=== PATIENT | male | born 1950 | race Caucasian/White ===

== ENCOUNTER 2016-11-20 07:17 | Day surgery (SDC) | payer MEDICARE, OTHER ==
[~2016-11-20] VITALS: Ht 193 cm; Wt 106.3 kg
--- OUTSIDE RECORDS SUMMARY | 2016-11-20 07:20 | XMS REPORT | Clinical Summary ---
Author Author Admin, E Organization [facility] Address Unknown Phone Unavailable Allergies, Adverse Reactions, Alerts Allergy Name Reaction Description Start Date Severity Status Provider No Known Allergies Magui Elder Conditions or Problems Problem Name Problem Code Onset Date Status Entry Date Provider Comment Standard Description Annotate B P H Active Kaycee Elmore MD Hypertrophy ( benign) of prostate without urinary obstruction and other lower urinary tract ( LUTS) Incomplete Bladder Emptying Active Kaycee Elmore MD Retention of urine, unspecified Medication List Medication Instructions Start Date Stop Date Generic Name NDC Status Provider Patient Instruction MULTIVITAMINS CAPS 1 cap by mouth daily MULTIPLE VITAMIN 89692721120 Active Kaycee Elmore MD Active ASPIRIN 81 MG ORAL TBEC 1 po qd ASPIRIN 99392447773 Active Kaycee Elmore MD Active METFORMIN HCL 1000 MG TABS 1 tablet by mouth twice daily METFORMIN HCL 69806000259 Active Kaycee Elmore MD Active ATORVASTATIN CALCIUM 10 MG TABS 1 pill by mouth nightly, for cholesterol 2016 ATORVASTATIN CALCIUM 48134131962 Active Kaycee Elmoer MD Active FLOMAX 0.4 MG CAPS 1 Daily TAMSULOSIN HCL 61763471314 Active Kaycee Elmore MD Active JARDIANCE 10 MG ORAL TABS 1 tablet daily for diabetes EMPAGLIFLOZIN 89281522465 Active Kaycee Elmore MD Active GLIMEPIRIDE 4 MG ORAL TABS 1 po BID GLIMEPIRIDE 92641557191 Active Kaycee Elmore MD Active Advance Directives Directive Description Start Date PERMISSION TO SHARE Vital Signs Date Name Value Unit Range Description blood pressure, diastolic 70 mm[Hg] BP sandoval blood pressure, systolic 125 mm[Hg] BP sys height E&M 74 [in_us] Bdy height pulse rate E&M 75 /min Heart rate temperature E&M 98.3 [degF] Body temperature weight E&M 244 [lb_av] Weight Measured Encounters Code Encounter Date Provider Facility CPT-00268 Level 4 New Patient 01:01:31 CDT Kaycee Elmore MD [facility] Procedures Code Procedure Name Date Entry Date Standard Description CPT-67281 Bladder Scan 01:01:32 CDT
--- OUTSIDE RECORDS SUMMARY | 2016-11-20 07:20 | XMS REPORT | Clinical Summary ---
Author Author Admin, E Organization [facility] Address Unknown Phone Unavailable Allergies, Adverse Reactions, [...] 1 cap by mouth daily MULTIPLE VITAMIN 95025545107 Active Kaycee Elmore MD Active ASPIRIN 81 MG ORAL TBEC 1 po qd ASPIRIN 61050007682 Active Kaycee Elmore MD Active METFORMIN HCL 1000 MG TABS 1 tablet by mouth twice daily METFORMIN HCL 23917750027 Active Kaycee Elmore MD Active ATORVASTATIN CALCIUM 10 MG TABS 1 pill by mouth nightly, for cholesterol 2016 ATORVASTATIN CALCIUM 71228209429 Active Kaycee Elmore MD Active FLOMAX 0.4 MG CAPS 1 Daily TAMSULOSIN HCL 56405926890 Active Kaycee Elmore MD Active JARDIANCE 10 MG ORAL TABS 1 tablet daily for diabetes EMPAGLIFLOZIN 16435752297 Active Kaycee Elmore MD Active GLIMEPIRIDE 4 MG ORAL TABS 1 po BID GLIMEPIRIDE 67290761281 Active Kaycee Elmore MD Active Vital Signs Date Name Value Unit Range Description blood pressure, diastolic 70 mm[Hg] BP sandoval blood pressure, systolic 125 mm[Hg] BP sys height E&M 74 [in_us] Bdy height pulse rate E&M 75 /min Heart rate temperature E&M 98.3 [degF] Body temperature weight E&M 244 [lb_av] Weight Measured Encounters Code Encounter Date Provider Facility CPT-99225 Level 4 New Patient 01:01:31 CDT Kaycee Elmore MD [facility] Procedures Code Procedure Name Date Entry Date Standard Description CPT-75128 Bladder Scan 01:01:32 CDT
--- OUTSIDE RECORDS SUMMARY | 2016-11-20 07:20 | XMS REPORT | Clinical Summary ---
Author Author Admin, E Organization [facility] Address Unknown Phone Unavailable Allergies, Adverse Reactions, [...] 1 cap by mouth daily MULTIPLE VITAMIN 27799362003 Active Kaycee Elmore MD Active ASPIRIN 81 MG ORAL TBEC 1 po qd ASPIRIN 19229974592 Active Kaycee Elmore MD Active METFORMIN HCL 1000 MG TABS 1 tablet by mouth twice daily METFORMIN HCL 45181357148 Active Kaycee Elmore MD Active ATORVASTATIN CALCIUM 10 MG TABS 1 pill by mouth nightly, for cholesterol 2016 ATORVASTATIN CALCIUM 09462549860 Active Kaycee Elmore MD Active FLOMAX 0.4 MG CAPS 1 Daily TAMSULOSIN HCL 79931612104 Active Kaycee Elmore MD Active JARDIANCE 10 MG ORAL TABS 1 tablet daily for diabetes EMPAGLIFLOZIN 38537123245 Active Kaycee Elmore MD Active GLIMEPIRIDE 4 MG ORAL TABS 1 po BID GLIMEPIRIDE 16509416232 Active Kaycee Elmore MD Active Advance Directives [...] Measured Encounters Code Encounter Date Provider Facility CPT-64222 Level 4 New Patient 01:01:31 CDT J Burton Elmore MD [facility] Procedures Code Procedure Name Date Entry Date Standard Description CPT-02620 Bladder Scan 01:01:32 CDT
--- OUTSIDE RECORDS SUMMARY | 2016-11-20 07:20 | XMS REPORT | Clinical Summary ---
Author Author Admin, E Organization [facility] Address Unknown Phone Unavailable Allergies, Adverse Reactions, [...] 1 cap by mouth daily MULTIPLE VITAMIN 92155757910 Active Kaycee Elmore MD Active ASPIRIN 81 MG ORAL TBEC 1 po qd ASPIRIN 88541054320 Active Kaycee Elmore MD Active METFORMIN HCL 1000 MG TABS 1 tablet by mouth twice daily METFORMIN HCL 13785054443 Active Kaycee Elmore MD Active ATORVASTATIN CALCIUM 10 MG TABS 1 pill by mouth nightly, for cholesterol 2016 ATORVASTATIN CALCIUM 72820522449 Active Kaycee Elmore MD Active FLOMAX 0.4 MG CAPS 1 Daily TAMSULOSIN HCL 68378711478 Active Kaycee Elmore MD Active JARDIANCE 10 MG ORAL TABS 1 tablet daily for diabetes EMPAGLIFLOZIN 02600908560 Active Kaycee Elmore MD Active GLIMEPIRIDE 4 MG ORAL TABS 1 po BID GLIMEPIRIDE 33028275288 Active Kaycee Elmore MD Active Advance Directives [...] Measured Encounters Code Encounter Date Provider Facility CPT-46520 Level 4 New Patient 01:01:31 CDT J Burton Elmore MD [facility] Procedures Code Procedure Name Date Entry Date Standard Description CPT-49653 Bladder Scan 01:01:32 CDT
--- OUTSIDE RECORDS SUMMARY | 2016-11-20 07:20 | XMS REPORT | Clinical Summary ---
Author Author Admin, E Organization [facility] Address Unknown Phone [...] 1 cap by mouth daily MULTIPLE VITAMIN 26291544621 Active Kaycee Elmore MD Active ASPIRIN 81 MG ORAL TBEC 1 po qd ASPIRIN 63482745418 Active Kaycee Elmore MD Active METFORMIN HCL 1000 MG TABS 1 tablet by mouth twice daily METFORMIN HCL 46153929011 Active Kaycee Elmore MD Active ATORVASTATIN CALCIUM 10 MG TABS 1 pill by mouth nightly, for cholesterol 2016 ATORVASTATIN CALCIUM 81264265833 Active Kaycee Elmore MD Active FLOMAX 0.4 MG CAPS 1 Daily TAMSULOSIN HCL 54929200712 Active Kaycee Elmore MD Active JARDIANCE 10 MG ORAL TABS 1 tablet daily for diabetes EMPAGLIFLOZIN 11759343831 Active Kaycee Elmore MD Active GLIMEPIRIDE 4 MG ORAL TABS 1 po BID GLIMEPIRIDE 36333517266 Active Kaycee Elmore MD Active Advance Directives [...] Measured Encounters Code Encounter Date Provider Facility CPT-59592 Level 4 New Patient 01:01:31 CDT J Burton Elmore MD [facility] Procedures Code Procedure Name Date Entry Date Standard Description CPT-07493 Bladder Scan 01:01:32 CDT
--- OUTSIDE RECORDS SUMMARY | 2016-11-20 07:21 | XMS REPORT | Clinical Summary ---
Author Author Admin, E Organization [facility] Address Unknown Phone Unavailable Allergies, Adverse Reactions, [...] 1 cap by mouth daily MULTIPLE VITAMIN 50892294731 Active Kaycee Elmore MD Active ASPIRIN 81 MG ORAL TBEC 1 po qd ASPIRIN 57729998749 Active Kaycee Elmore MD Active METFORMIN HCL 1000 MG TABS 1 tablet by mouth twice daily METFORMIN HCL 19061824554 Active Kaycee Elmore MD Active ATORVASTATIN CALCIUM 10 MG TABS 1 pill by mouth nightly, for cholesterol 2016 ATORVASTATIN CALCIUM 08043843479 Active Kaycee Elmore MD Active FLOMAX 0.4 MG CAPS 1 Daily TAMSULOSIN HCL 70553098411 Active Kaycee Elmore MD Active JARDIANCE 10 MG ORAL TABS 1 tablet daily for diabetes EMPAGLIFLOZIN 36159239804 Active Kaycee Elmore MD Active GLIMEPIRIDE 4 MG ORAL TABS 1 po BID GLIMEPIRIDE 35133854665 Active Kaycee Elmore MD Active Advance Directives [...] Measured Encounters Code Encounter Date Provider Facility CPT-93816 Level 4 New Patient 01:01:31 CDT J Burton Elmore MD [facility] Procedures Code Procedure Name Date Entry Date Standard Description CPT-66993 Bladder Scan 01:01:32 CDT
[2016-11-20] MEDS ORDERED: CATHETER FLUSH 10 ML SYR IV PRN (08:00)
[2016-11-20] MEDS ORDERED: IOHEXOL 300 MG/ML 50 ML (OMNIPAQUE 300) VIAL IV ONE (08:00)
[2016-11-20 08:18] VITALS: BP 132/60
[2016-11-20 08:49] LABS: MEAN PLATELET VOLUME 9.9 FL (7.4-10.4); RED BLOOD COUNT 5.18 10^6/uL (4.35-5.85); RED CELL DISTRIBUTION WIDTH 15.4 % (10.0-14.5); WHITE BLOOD COUNT 8.4 10^3/uL (4.3-11.0)
--- NOTE | 2016-11-20 09:54 | Pre-Procedure Progress Note ---
Pre-Procedure Progress Note H&P Reviewed The H&P was reviewed, patient examined and no changes noted. Date H&P Reviewed: Nov 20, 2016 Time H&P Reviewed: 09:00 Pre-Procedure Diagnosis: back pain myelogram pending KYLIE CERDA MD Nov 20, 2016 09:54
--- NOTE | 2016-11-20 09:55 | Discharge Instructions ---
Discharge Instructions Home Medicaitons Changes Hold any current blood thinner home medications for [24 hours]. KYLIE CERDA MD Nov 20, 2016 09:55
[2016-11-20] MEDS ORDERED: ACETAMINOPHEN 500 MG TAB (TYLENOL) PO PRN (10:00)
[2016-11-20] MEDS ORDERED: METF1000 PO (11:09)
[2016-11-20] MEDS ORDERED: MULT-35 PO (11:09)
[2016-11-20] MEDS ORDERED: ATOR40TA70 PO (11:09)
[2016-11-20] MEDS ORDERED: GLIM4TAB PO (11:09)
[2016-11-20] MEDS ORDERED: EMPA25TA PO (11:09)
[2016-11-20] MEDS ORDERED: EXEN2PEN SQ (11:09)
[2016-11-20] MEDS ORDERED: ASPI-983 PO (11:09)
[2016-11-20] MEDS ORDERED: TAMS0.4C2 PO (11:09)
--- NOTE | 2016-11-20 11:11 | Diagnostic Imaging Report ---
EXAMINATION: Fluoroscopic guided lumbar puncture with intrathecal contrast injection and myelogram performed. INDICATION: Spinal stenosis. FLUOROSCOPY TIME: 25.6 seconds CONSENT: Informed consent was obtained from the patient. The risks, benefits, potential complications and alternatives were reviewed and all questions answered to the patient's satisfaction. PROCEDURE: After sterile preparation and draping, 1% lidocaine was utilized for local anesthesia. Under fluoroscopic guidance, a 22-gauge spinal needle is advanced into the spinal canal at the level of L3/4. Clear CSF is obtained. Under fluoroscopic visualization, 12 cc of intrathecal Omnipaque-240 is administered into the thecal sac. The patient tolerated the procedure well with no immediate complications. FINDINGS: Myelogram images demonstrate opacification of the thecal sac. Posterior fusion hardware is seen involving L2-S1 levels. IMPRESSION: Successful fluoroscopic guided intrathecal contrast injection with myelogram obtained and a lumbar CT myelogram to follow. Dictated by: Dictated on workstation # [id number]
[2016-11-20 11:43] VITALS: BP 117/68
--- NOTE | 2016-11-20 13:57 | Diagnostic Imaging Report ---
PROCEDURE: CT lumbar spine with contrast. TECHNIQUE: Multiple contiguous axial images were obtained through the lumbar spine after the intrathecal administration of contrast. Sagittal and coronal reformations were then performed. INDICATION: Back pain. FINDINGS: There is good opacification of the thecal sac with contrast. Please note that there is [id number] image noise on this exam due to the patient's large body habitus and artifacts from the metallic hardware which includes posterior fusion rods and transpedicular screws, on the right side involving L3 to S1, and on the left, screws are seen at the L3, L5, and S1 levels. There is also from a lateral approach on the left side a plate and screws along the vertebral bodies at L2/L3, and there is evidence of disc cage placement at L2/3, L3/4, L4/5, and L5/S1 levels. There is a suggestion of osseous bridging at L4/L5 with pseudoarthrosis at other levels. There is left hemilaminectomy performed at the L1/2 and L2/3 levels with suggestion of limited right hemilaminectomy at L4/5. The alignment of the posterior spinal line demonstrates grade 1 retrolisthesis of L4 over L5 and grade 1 anterolisthesis of L5 over S1. There is a presumably pre-existing mild compression fracture of L4 vertebral body and minimal compression fracture of L3 vertebral body which appears to be old. The facet joints at the fusion levels demonstrate osseous bridging, at L2/3 through L5/S1 bilaterally. There is an element of pre-existing congenitally relatively narrow AP dimension of the spinal canal, particularly at L3 and L4 levels. The cauda equina and conus medullaris lined with contrast appear grossly unremarkable. T12/L1: There is a minimal disc bulge with no significant spinal canal or foramina stenosis seen. L1/2: There is a disc bulge and posterior osteophytes associated with gdco-ka-cbgurgkc central canal stenosis reducing the AP dimension of the canal to 8.3 mm with CSF seen around the nerve roots and decompression left laminectomy at this level. No significant lateral recess stenosis is identified. The foramina appear patent. L2/3: There is a diffuse disc bulge and posterior osteophyte seen. There is left hemilaminectomy. There is mild central canal stenosis reducing the AP dimension of the canal to 9 mm. There is bilateral mild lateral recess stenosis. The foramina appear patent. L3/4: There is severe bilateral facet hypertrophy. A limited right hemilaminectomy is suggested. There is moderate spinal canal stenosis with reduced AP dimension of the central canal to 8.4 mm, and posterior osteophyte formation is seen. The lateral recesses demonstrate xoyslaqv-br-mddafl narrowing on the left and vzmg-lk-gdilrnhp narrowing on the right side. There is mild foraminal stenosis on the right and arvcxhat-rd-hhbnwm foraminal stenosis on the left. L4/5: There is no significant disc herniation or spinal canal stenosis. There is prominent hypertrophy of the facet joints. The foramina demonstrate mild stenosis on the left and moderate stenosis on the right. L5/S1: There is posterior osteophyte formation. Partial laminectomy suggested. No central canal or lateral recess stenosis. There is severe facet arthropathy with osseous bridging across the facet joints suggested at this level. The foramina demonstrate wvdrxqhm-au-yvepbd stenosis bilaterally. 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 Multilevel spinal canal and foraminal stenosis seen as described. Dictated by: Dictated on workstation # [id number]
[2016-11-20] MEDS ORDERED: CATHETER FLUSH 10 ML SYR IV SCH (14:00)
== END 2016-11-20 15:01 | disposition home or self-care (01) ==
LOC: RAD 07:17 → 4TH 07:49 → RAD 15:01
DX: M48.06 Spinal stenosis, lumbar region (principal); E78.2 Mixed hyperlipidemia; E11.42 Type 2 diabetes mellitus with diabetic polyneuropathy; N40.1 Benign prostatic hyperplasia with lower urinary tract symptoms; Z79.84 Long term (current) use of oral hypoglycemic drugs; Z79.899 Other long term (current) drug therapy
CPT/HCPCS: 36415; 62284; 72132; 72265; 77002; 85027; 85610; 85730

== ENCOUNTER 2019-10-14 09:02 | Emergency (ER) | payer MEDICARE, OTHER ==
[~2019-10-14] VITALS: Ht 190.5 cm; Wt 105.8 kg
[~2019-10-14 09:02] MED LIST: ASPI-983 PO; ATOR40TA70 PO; EMPA25TA PO; EXEN2PEN SQ; GLIM4TAB5 PO; METF-399 PO; MULT-35 PO; TAMS0.4C2 PO
--- OUTSIDE RECORDS SUMMARY | 2019-10-14 09:08 | XMS REPORT | Clinical Summary ---
Author Author Admin, Marcial Holt Organization [facility] Address Unknown Phone Unavailable Allergies, Adverse Reactions, Alerts Allergy Name Reaction Description Start Date Severity Status Pr ovider No Known Allergies Magui Elder Conditions or Problems Problem Name Problem Code Onset Date Status Entry Date Provider Comment Standard Description Annotate B P H Active Kaycee Elmore MD Hypertrophy (benign) of prostate without urinary obstruction and other lower urinary tract (LUTS) Incomplete Bladder Emptying Active Kaycee Elmore MD Retention of urine, unspecified Medication List Medication Instructions Start Date Stop Date Generic Name NDC Status Provider Patient Instruction MULTIVITAMINS CAPS 1 cap by mouth daily MULTIPL E VITAMIN 76204911560 Active Kaycee lEmore MD Active ASPIRIN 81 MG ORAL TBEC 1 po qd ASPIRIN 64895846533 A ctive Kaycee Elmore MD Active METFORMIN HCL 1000 MG TABS 1 tablet by mouth twice daily METFORMIN HCL 94810242894 Active Kaycee Elmore MD Active ATORVASTATIN CALCIUM 10 MG TABS 1 pill by mouth nightly, for cholesterol ATORVASTATIN CALCIUM 03680880081 Active Kaycee Elmore MD Active FLOMAX 0.4 MG CAPS 1 Daily TAMSULOSIN HCL 22757901952 Active Kaycee Elmore MD Active JARDIANCE 10 MG ORAL TABS 1 tablet daily for diabetes EMPAGLIFLOZIN 66147857430 Active Kaycee Elmore MD Active GLIMEPIRIDE 4 MG ORAL TABS 1 po BID GLIMEPIRIDE 87753 268479 Active Kaycee Elmore MD Active Advance Directives Directive Description Start Date PERMISSION TO SHARE Vital Signs Date Name Value Unit Range Description blood pressure, diastolic 71 mm[Hg] BP sandoval blood pressure, systolic 122 mm[Hg] BP sys pulse rate E&M 74 /min Heart rate temperature E&M 98.1 [degF] Body temp erature weight E&M 244 [lb_av] Weight Measure d blood pressure, diastolic 70 mm[Hg] BP sandoval blood pressure, systolic 125 mm[Hg] BP sys height E&M 74 [in_us] Bdy height pulse rate E&M 75 /min Heart rate temperature E&M 98.3 [degF] Body temp erature weight E&M 244 [lb_av] Weight Measure d Diagnostic Results Date Name Value Unit Range Description Chart Maintenance: Outside labs entered on flowsheet - Chemistry prostate specific antigen 1.4 ng/mL Encounters Code Encounter Date Provider Facility CPT-57647 Level 4 New Patient 01:01:31 CDT Kaycee smith MD [facility] Procedures Code Procedure Name Date Entry Date Standard Desc ription CPT-14828 Postop F/U Visit 13:19:53 CDT CPT-29031 Bladder Scan 01:01:32 CDT
--- OUTSIDE RECORDS SUMMARY | 2019-10-14 09:08 | XMS REPORT | Encounter Summary ---
Author Author [facility] СВЕТЛАНА moreno Organization [facility] Address [address] [place] [address] Phone Unavailable Support Name Relationship Address Phone Dipak SCHNEIDER Next Of Kin [address] [place] [address] Dipak SCHNEIDER [address] [address] Insurance Providers: All historical and current Section Date Range: From patient's date of to the date document was create d. This section includes the names of all active insurance providers for the joy gerardo Insurance Provider Type of Coverage Plan Name Start of Policy Co verage End of Policy Coverage Group Number Member ID Insurance Provider's Telephone N umber Policy Aguilar's Name Patient's Relationship to Policy Aguilar [facility] (WNR) [facility] Sep 13, 1997 WNR [id number] СВЕТЛАНА SCHNEIDER PATIENT Selected Encounter This section includes the information on record at [facility] for the Encounter. Date/Time Encounter Type Encounter Description Reason Provider Source Mar 30, 2019 10:00 AM OFFICE/OUTPATIENT VISIT EST OCCUPATIONAL H [facility] ICD-10-CM Z02.89 Encounter for other administrative examinations with Provider Comments: Administrative Exam NEC MARI GAUTHIER LOCATED WITHIN [facility] [place] [facility] I[facility] Encounter Template Text not used by [facility] Assessments - Encounter Diagnoses This section includes the primary and secondary diag noses documented for the Encounter. Date/Time Primary/Secondary Diagnosis Diagnosis Name Provider Source Mar 31, 2019 04:46 PM PRIMARY Encounter for other admini strative examinations MARI GAUTHIER [facility] [facility] Plan of Treatment: Future Appointments (+ 6 months) and Future Tests (+/- 45 day s) No Data Provided for This Section Surgical Procedures: All associated to the encounter No Data Provided for This Section Lab Results: +/- 30 days of the encounter This section includes the Chemistry and Hematology Lab R esults on record with [facility] for the patient. Radiology Reports and Pathology Report s are provided separately, in subsequent sections. Lab Results This section contains the Chemistry/Hematology Results javad t were resulted 30 days before or 30 days after the date of the Encounter. Date/Time Source Result Type Result - Unit Interpretation Reference Range Comment Mar 30, 2019 10:51 AM LOCATED WITHIN [facility] [place] [facility] HEMOGLOBIN A1C Specimen Type: BLOOD No comment entered. HEMOGLOBIN A1C 8.5 % H 4.0-6.0 Mar 30, 2019 10:51 AM [facility] [place] [facility] URINALYSIS Specimen Type: URINE No comment entered. URINE COLOR Yellow SPECIFIC GRAVITY 1.029 1.005-1.030 UROBILINOGEN Negative mg/dL 0.1-1.0 URINE BILIRUBIN Negative Negative URINE KETONES 5 mg/dl Negative URINE GLUCOSE >=500 mg/dL Negative URINE PROTEIN Negative mg/dl Negative-Tr ankit URINE PH 5.0 5-8 URINE MUCUS Trace /LPF None APPEARANCE,URINE Clear Clear URINE BLOOD Small Negative URINE NITRITE Negative Negative LEUKOCYTE ESTERASE Negative Negative *UR WBC 0-2 WBC/HPF 0-5 *UR RBC 0-2 RBC/HPF 0-2 SQUAMOUS EPITHELIAL Trace /HPF Vital Signs: All taken on the encounter date No Data Provided for This Section Immunizations: All administered on the encounter date No Data Provided for This Section Social History: Smoking Status (Most current) and Tobacco Use (All prior to enco unter date) No Data Provided for This Section Advance Directives: All historical and current No Data Provided for This Section Allergies and Adverse Reactions (ADRs): All historical and current Section Date Range: From patient's date of to the date document was create d. This section includes Allergies and Adverse Reactions (ADR s) on record with [place] for the patient. The data comes from a [facility] treatment facilities. It does not list Allergies/ADRs that were removed or entered in error. Some allergies/ADRs may be reported in t he Immunization section. Allergen Event Date Event Type Reaction(s) Severity Source No Allergy Assessment on File [place] [place] Medications: [facility] dispensed (-15 months) and Non-VA Documented (Obtained Outside V A) No Data Provided for This Section Problems (Conditions): All historical and current No Data Provided for This Section Radiology Reports: +/- 30 days of the encounter No Data Provided for This Section Pathology Reports: +/- 30 days of the encounter No Data Provided for This Section Encounter Notes: All associated encounter notes This section contains the clinical notes associated to the Encounter. Date/Time Encounter Note(s) Provider Source Mar 30, 2019 06:41 AM OCCUPATIONAL MEDICINE NOTE: [facility] TITLE: [employer] STANDARD TITLE: OCCUPATIONAL MEDICINE NOTE DATE OF NOTE: MAR 30, 2019@06:41 ENTRY DATE: MAR 30, 2019@06:41:17 AUTHOR: MARI GAUTHIER EXP COSIGNER: URGENCY: STATUS: COMPLETED You may not VIEW this COMPLETED -[employer]. MARI GAUTHIER [facility] [place] [facility]
--- OUTSIDE RECORDS SUMMARY | 2019-10-14 09:08 | XMS REPORT | Clinical Summary ---
Author Author Admin, Marcial Holt Organization [facility] Address Unknown Phone Unavailable Allergies, Adverse Reactions, [...] cap by mouth daily MULTIPL E VITAMIN 17316713872 Active Kaycee Elmore MD Active ASPIRIN 81 MG ORAL TBEC 1 po qd ASPIRIN 24577468877 A ctive Kaycee Elmore MD Active METFORMIN HCL 1000 MG TABS 1 tablet by mouth twice daily METFORMIN HCL 22657283740 Active Kaycee Elmore MD Active ATORVASTATIN CALCIUM 10 MG TABS 1 pill by mouth nightly, for cholesterol ATORVASTATIN CALCIUM 28847634004 Active Kaycee Elmore MD Active FLOMAX 0.4 MG CAPS 1 Daily TAMSULOSIN HCL 66596439746 Active Kaycee Elmore MD Active JARDIANCE 10 MG ORAL TABS 1 tablet daily for diabetes EMPAGLIFLOZIN 80467278552 Active Kaycee Elmore MD Active GLIMEPIRIDE 4 MG ORAL TABS 1 po BID GLIMEPIRIDE 74151 827945 Active Kaycee Elmore MD Active Advance Directives [...] ng/mL Encounters Code Encounter Date Provider Facility CPT-42397 Level 4 New Patient 01:01:31 CDT Kaycee smith MD [facility] Procedures Code Procedure Name Date Entry Date Standard Desc ription CPT-63367 Postop F/U Visit 13:19:53 CDT CPT-51172 Bladder Scan 01:01:32 CDT
--- OUTSIDE RECORDS SUMMARY | 2019-10-14 09:08 | XMS REPORT | Encounter Summary ---
Author Author Department of [facility] СВЕТЛАНА moreno Organization [facility] Address [address] [place] [phone] Phone Unavailable Support Name Relationship Address Phone Dipak SCHNEIDER Next Of Kin [address] [place] [address] Dipak SCHNEIDER [address] [address] Insurance Providers: All historical and [...] Aguilar's Name Patient's Relationship to Policy Aguilar [facility] (WNR) PRIME [birth year] 1998 WNR [id number] СВЕТЛАНА SCHNEIDER PATIENT Selected Encounter This section includes the information on record at [facility] for the Encounter. Date/Time Encounter Type Encounter Description Reason Provider Source Mar 30, 2019 10:37 AM Outpatient Encounter EKG ICD-1 0-CM Z13.6 Encounter for screening for cardiovascular disorders with Provider Comments: Encounter for Screening for Cardiovascular Disorders ALESSANDRA MARIE [facility] [place] [facility] IHE Encounter Template Text not used by [facility] Assessments - Encounter Diagnoses This section includes the primary and secondary diag noses documented for the Encounter. Date/Time Primary/Secondary Diagnosis Diagnosis Name Provider Source Mar 30, 2019 10:37 AM PRIMARY Encounter for scre ening for cardiovascular disorders TRACEY FAGAN [facility] [place] [facility] Plan of Treatment: Future Appointments (+ 6 months) and Future Tests (+/- 45 day s) No Data Provided for This Section Surgical Procedures: All associated to the encounter No Data Provided for This Section Lab Results: +/- 30 days of the encounter This section includes the Chemistry and Hematology Lab R esults on record with [facility] for the patient. Radiology Reports and Pathology Report s are provided separately, in subsequent sections. Lab Results This section contains the Chemistry/Hematology Results javad t were resulted 30 days before or 30 days after the date of the Encounter. Date/Time Source Result Type Result - Unit Interpretation Reference Range Comment Mar 30, 2019 10:51 AM [facility] [place] [facility] HEMOGLOBIN A1C Specimen Type: BLOOD No comment entered. HEMOGLOBIN A1C 8.5 % H 4.0-6.0 Mar 30, 2019 10:51 AM [facility] [employer] [place] [facility] URINALYSIS Specimen Type: URINE No [...] Adverse Reactions (ADR s) on record with [facility] for the patient. The data comes from a [facility] treatment facilities. It does not list Allergies/ADRs [...] Section Encounter Notes: All associated encounter notes No Data Provided for This Section
--- OUTSIDE RECORDS SUMMARY | 2019-10-14 09:08 | XMS REPORT | Encounter Summary ---
Author Author Department of [facility] СВЕТЛАНА moreno Organization Department of [facility] Address [address] [place] [address] Phone Unavailable Support Name Relationship Address Phone Dipak SCHNEIDER Next Of Kin [address] [place] [address] Dipak SCHNEIDER [address] [address] Insurance Providers: All historical and [...] Aguilar's Name Patient's Relationship to Policy Aguilar [facility] (WNR) PRIME Sep 13, 1997 WNR [id number] СВЕТЛАНА SCHNEIDER PATIENT Selected Encounter This section includes the information on record at [facility] for the Encounter. Date/Time Encounter Type Encounter Description Reason Provider Source Jun 29, 2019 07:48 AM Outpatient Encounter [facility] [place] [facility] Encounter Template Text not used by [facility] Assessments - Encounter Diagnoses No Data Provided for This Section Plan of Treatment: Future Appointments (+ 6 months) and Future Tests (+/- 45 day s) The Plan of Treatment section includes future care activities for the patient fr om all [facility] treatment facilities. This section includes future appointments and fu ture orders which are active, pending or scheduled. Active, Pending, and Scheduled Orders This section includes a listing of several types of activ e, pending, and scheduled orders, including clinic medications orders, diagnosti c test orders, procedure orders and consult orders; where the start date of th e order is 45 days before the date of the Encounter or 45 days after the date o f the Encounter. The data comes from all [facility] treatment facilities. Test Date/Time Test Type Test Details Facility Name Jun 30, 2019 07:00 AM Laboratory - Chemistry Order HEMOGLOBI N A1C LAVENDER TOP BLOOD [facility] [place] [facility] Surgical Procedures: All associated to the encounter No Data Provided for This Section Lab Results: +/- 30 days of the encounter No Data Provided for This Section Vital Signs: All taken on the encounter [...] Adverse Reactions (ADR s) on record with [facility] for the patient. The data comes from a ll [facility] treatment facilities. It does not list Allergies/ADRs that were removed or entered in error. Some allergies/ADRs may be reported in t Immunization section. Allergen Event Date Event Type Reaction(s) Severity Source No Allergy Assessment on File [facility] [place] Medications: [facility] dispensed (-15 months) and Non-VA Documented (Obtained Outside A) No Data Provided for This Section [...] the Encounter. Date/Time Encounter Note(s) Provider Source Jun 29, 2019 07:48 AM ADMINISTRATIVE NOTE: LOCAL TITLE: EK-ADMINISTRATIVE STANDARD TITLE: ADMINISTRATIVE NOTE DATE OF NOTE: JUN 29, 2019@07:48 ENTRY DATE: JUN 29, 2019@07:48:49 AUTHOR: MARI GAUTHIER EXP COSIGNER: URGENCY: STATUS: COMPLETED N: Received fax document of A1c. Down to 7.8 A: Cleared for volunteer driving P: 1. Notify Sandra Moore in [facility] 2. RTC in one year. /sid/ MARI GAUTHIER HOT REPAIRMAN Signed: 06/29/2019 07:51 MARI GAUTHIER [facility]
--- OUTSIDE RECORDS SUMMARY | 2019-10-14 09:08 | XMS REPORT ---
Author Author [employer] senior sql dba [employer] [facility] [email or web address] [facility] Eren[facility] Address [address] [address] Care Team Providers Care Mechanics Handyman Name Role Phone SERENEANAND Unavailable LOC MONTALVO MD Unavailable Unavailable Unavailable Unavailable Unavailable Unavailable SELFANAND Unavailable Unavailable Unavailable Unavailable Unavailable Unavailable Unavailable Unavailable Unavailable Unavailable Unavailable Unavailable Allergies Normalized Allergy Reported Date of Reaction(s) Care Provider Facility Allergy Type classification allergen Allergy Onset DA (5 Unclassified No Known Drug 11-20-2016 - no information UNLISTED OTHER Not Available sources.) Allergies (43197) Medications No Information Problems Active Problems Problem Normalized Date Last Normalized Normalized Provider Fa cility Classification Problem(s) Recorded Problem Problem Sta tus Duration Other long-term Episodic Active LOC [facility] Via aftercare (1 (current) use MD Kim MONTALVO source.) of oral Hospital - hypoglycemic [place] drugs (22625) Disorders of Mixed Chronic Active LOC [facility] Via lipid hyperlipidemia MD Kim MONTALVO metabolism (7 Hospital - sources.) [place] ([address]) Other Other long Episodic Active LOC [facility] Via aftercare (7 term (current) MD Kim MONTALVO sources.) drug therapy Hospital - [place] (77416) Spondylosis; 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 MD [facility] disc lumbar region Hospital - disorders; [place] other back (86481) problems (8 sources.) Diabetes Type 2 Chronic Active LOC [facility] Via mellitus with diabetes MD Kim MONTALVO complications mellitus with Hospital - (1 source.) diabetic [place] polyneuropathy (92803) Past or Other Problems Problem Normalized Date Last Normalized Normalized Provider Fa cility Classification Problem(s) Recorded Problem Problem Sta tus Duration Other long-term no information no information UNLISTED OTHE R Not Available aftercare (6 (current) use (08482) sources.) of oral hypoglycemic drugs Diabetes Type 2 no information no information UNLISTED OTHER Not Available mellitus with diabetes (10416) complications mellitus with (6 sources.) diabetic polyneuropathy Procedures Procedure Normalized Procedure Procedure Result Performer Facility Date Laser vaporization of no information no name Not Avai lable (85694) prostate for urine flow Immunizations Normalized Immunization Date Notes Care Provider Facili ty Immunization influenza, seasonal, 02-08-2019 no information no [facility] (65147) pneumococcal 02-19-2017 no information no name [facility] conjugate vaccine, [facility] (47546) pneumococcal 02-08-2019 no information no name [facility] polysaccharide [facility] vaccine, 23 [facility] (25166) zoster vaccine 04-30-2019 no information no name [facility] recombinant [facility] (90298) zoster vaccine 02-08-2019 no information no name [facility] recombinant [facility] (86377) Results Test Name Value Interpretation Reference Range Date Time Fa cility (Normalized) (Normalized) (Medline Reference) other on null no information (ENCNTRINFOAV) : (no code) Not Available No~([facility] (79405) ) : [id number]~( ACCRELATEDVI) : No~(CONVERS) : [facility] [place] Patient~([employer]_COM PLETE) : [id number]~( PREVPATTYPE) : Observation~(FTR ELTNCVG) : Freetext~(REALRE LTNCVG) : Real~(RELATINSTR ) : Please search using the first and last name in the person search box. If you select add person the first and last name will populate the name lan above.~(CONVERSA TION) : [facility] PreReg~(SELFPAYB JULIEN) : $0~(NOEMAIL) : No Email~([facility] K) : Yes~() : Yes laboratory on 2019-09-14 Albumin 4.3 g/dL (N) 3.4 - 5.4 g/dL [facility] [Mass/Vol] [facility] (58509) Albumin/Globulin 1.7 {ratio} (N) 1 - 2.5 {ratio} [facility] [Mass ratio] [facility] (54203) ALP [Catalytic 95 U/L (N) 44 - 147 U/L [facility] activity/Vol] [facility] (86328) ALT [Catalytic 10 U/L (N) 4 - 40 U/L [facility] activity/Vol] [facility] (62211) AST [Catalytic 20 U/L (N) 10 - 34 U/L [facility] activity/Vol] [facility] (70182) Bilirubin 0.7 mg/dL (N) 0.1 - 1.2 mg/dL [facility] [Mass/Vol] [facility] (17957) Calcium 9.2 mg/dL (N) 8.5 - 10.2 mg/dL [facility] [Mass/Vol] [facility] (87556) Chloride 105 mmol/L (N) 95 - 106 mmol/L [facility] [Moles/Vol] [facility] (67438) CO2 [Moles/Vol] 24 mmol/L (N) 23 - 29 mmol/L [facility] (97268) Creatinine 0.95 mg/dL (N) [facility] h [Mass/Vol] [facility] (63523) GFR/1.73 sq M 95 (N) 90 - 120 Community [facility] predicted among mL/min/{1.73_m2} mL/min/{1.73_m2} [place] o f [facility] blacks MDRD [facility] (S/P/Bld) [Vol (89420) rate/Area] GFR/1.73 sq 82 (N) 90 - 120 [facility] th M.predicted MDRD mL/min/{1.73_m2} mL/min/{1.73_m2} [facility] (S/P/Bld) [Vol [facility] rate/Area] (68304) Globulin (S) 2.6 g/dL (N) 2 - 3.5 g/dL [facility] [Mass/Vol] [facility] (30344) Glucose 134 mg/dL (H) 60 - 125 mg/dL [facility] [Mass/Vol] [facility] (39912) HbA1c (Bld) 7.4 (H) [facility] [Mass fraction] [facility] () Potassium 4.3 mmol/L (N) 3.7 - 5.2 mmol/L [facility] [Moles/Vol] [facility] () Protein 6.9 g/dL (N) 6.4 - 8.3 g/dL [facility] [Mass/Vol] [facility] () Sodium 140 mmol/L (N) 135 - 145 mmol/L [facility] [Moles/Vol] [facility] () Urea nitrogen 22 mg/dL (N) 7 - 20 mg/dL [facility] [Mass/Vol] [facility] () Urea NOT APPLICABLE (no code) [facility] nitrogen/Creatin [facility] [Mass ratio] [facility] () laboratory on 2019-06-13 Albumin 4.3 g/dL (N) 3.4 - 5.4 g/dL [facility] [Mass/Vol] [facility] () Albumin/Globulin 1.7 {ratio} (N) 1 - 2.5 {ratio} [facility] [Mass ratio] [facility] () ALP [Catalytic 116 U/L (N) 44 - 147 U/L [facility] activity/Vol] [facility] () ALT [Catalytic 10 U/L (N) 4 - 40 U/L [facility] ealt activity/Vol] [facility] () AST [Catalytic 16 U/L (N) 10 - 34 U/L [facility] activity/Vol] [facility] () Bilirubin 0.5 mg/dL (N) 0.1 - 1.2 mg/dL [facility] [Mass/Vol] [facility] () Calcium 9.2 mg/dL (N) 8.5 - 10.2 mg/dL [facility] [Mass/Vol] [facility] () Chloride 106 mmol/L (N) 95 - 106 mmol/L [facility] [Moles/Vol] [facility] (79741) CO2 [Moles/Vol] 25 mmol/L (N) 23 - 29 mmol/L [facility] (65350) Creatinine 0.80 mg/dL (N) [facility] h [Mass/Vol] [facility] (21608) GFR/1.73 sq M 106 (N) 90 - 120 [facility] alth predicted among mL/min/{1.73_m2} mL/min/{1.73_m2} Center o f [facility] blacks MDRD [facility] (S/P/Bld) [Vol (02522) rate/Area] GFR/1.73 sq 92 (N) 90 - 120 [facility] th M.predicted MDRD mL/min/{1.73_m2} mL/min/{1.73_m2} [facility] (S/P/Bld) [Vol [facility] rate/Area] (73928) Globulin (S) 2.6 g/dL (N) 2 - 3.5 g/dL [facility] ealt [Mass/Vol] [facility] (36954) Glucose 144 mg/dL (H) 60 - 125 mg/dL [facility] [Mass/Vol] [facility] (21165) HbA1c (Bld) 7.8 (H) [facility] [Mass fraction] [facility] (17006) Potassium 4.3 mmol/L (N) 3.7 - 5.2 mmol/L [facility] [Moles/Vol] [facility] (04380) Protein 6.9 g/dL (N) 6.4 - 8.3 g/dL [facility] [Mass/Vol] [facility] (56941) Sodium 140 mmol/L (N) 135 - 145 mmol/L [facility] [Moles/Vol] [facility] (98433) Urea nitrogen 19 mg/dL (N) 7 - 20 mg/dL [facility] [Mass/Vol] [facility] (45470) Urea NOT APPLICABLE (no code) [facility] nitrogen/Creatin [facility] [Mass ratio] [facility] (21419) laboratory on 2019 Free PSA 0.6 (N) [facility] [Mass/Vol] [facility] (52618) Free 46 (N) [facility] h PSA/Prostate [facility] Ag.total [Mass (73554) fraction] Prostate 1.3 ng/mL (N) 0 - 4 ng/mL [facility] specific Ag [facility] [Mass/Vol] [facility] (15456) Vital Signs The data below is from unstructured sources Vital Response Date/Time Temperature (Fahrenheit) 96.5 degree s F (97.6 - 99.5) 11/20/2016 11:43am Temperature (Calculated Celsius) 35. 59524 degrees C (36.4 - 37.5) 11/20/2016 11:43am Temperature Source Tympanic 11/20/2016 11:43am Pulse Rate (adult) 83 bpm (60 - 90) 11/20/2016 11:43am Respiratory Rate 20 bpm (12 - 24) 11/20/2016 11:43am O2 Sat by Pulse Oximetry 97 % (88 - 100) 11/20/2016 11:43am Blood Pressure 117/68 mm Hg 11/20/2016 11:43am Blood Pressure Mean 84 mm Hg 11/20/2016 11:43am Pain Numeric Pain Scale 2 12:18pm Height (Feet) 6 feet 01/2017 9:01am Height (Inches) 4.00 inches 11/20/2016 9:01am Height (Calculated Centimeters) 193. 370306 cm 11/20/2016 9:01am Weight (Pounds) 234 pounds 11/20/2016 9:01am Weight (Ounces) 6.0 oz 0 11/20/2016 9:01am Weight (Calculated Grams) 735425.71 gm 11/20/2016 9:01am Weight (Calculated Kilograms) 106.31 0713 kilograms 11/20/2016 9:01am Calculated BMI 28.5 11/11 9:01am Weight Measurement Method Built in Call Loop 11/20/2016 9:01am Interventions No Information Plan of Treatment The data below is from unstructured sources Discharge Date 11/20/16 3:01pm Instructions/Education Provided MYEL OGRAPHY Prescriptions See Medication Section Goals No Information Social History No Information Functional Status The data below is from unstructured sourcesNo functional status information available. Mental Status No Information Encounters Encounter Normalized Encounter Encounter Diagnosis Care Provi alex Organization Date Type 11-20-2016 Patient encounter no information no name no or ganization name - 11-20-2016 09-19-2019 Patient encounter no information ANAND J SELF (no [facility] phone) [facility] (no phone) 09-14-2019 Patient encounter no information (no phone) [facility]NAND J [facility] procedure [facility]F (no phone) [facility] (no phone) 06-13-2019 Patient encounter no information ANAND J SELF (no [facility] procedure phone) (no phone) (no [facility] phone) [place] (no phone) 03-15-2019 Patient encounter no information no name no or ganization name procedure 2019 Patient encounter no information no name no or ganization name procedure 06-24-2017 Patient encounter no information (no phone) [facility] procedure [facility] (no phone) 11-25-2016 Patient encounter no information no name no or ganization name - procedure 11-26-2016 11-20-2016 Patient encounter no information LOC MONTALVO MD [facility] Via Kim - procedure (no phone) [facility] [address] 11-20-2016 (no phone) Patient encounter no information no name no organizat ion name procedure Medical Equipment No Information Payers Normalized Payer Value Medicare no information () no information [facility] no information Advance Directives Directive Description Start Date PERMISSION TO SHARE Directive Response Recor ded Date/Time Advance Directives Yes 0 11/20/16 9:46am Resuscitation Status Full Code 11/20/16 9:46am Discharge Instructions Patient Instructions Physician Instructions Additional Source Comments This clinical document has been generated using Tendril software that has been certified by the Office of the National Coordinator for Health Information Technology (ONC 15.99.04.3023.Diam.31.00.0.683226) and the National Committee for Semiconductor Packages Sealer (NCQA, as an eMeasure certified technology). FOR RECORDS PERTAINING TO PATIENTS WHO ARE OR HAVE BEEN ENROLLED IN A CHEMICAL D EPENDENCY/SUBSTANCE ABUSE PROGRAM, SOME INFORMATION MAY BE OMITTED. This clinica l summary was aggregated from multiple sources. Caution should be exercised in using it in the provision of clinical care. This summary normalizes information from multiple sources, and as a consequence, information in this document may ma terially change the coding, format and clinical context of patient data. In orin tion, data may be omitted in some cases. CLINICAL DECISIONS SHOULD BE BASED ON T HE PRIMARY CLINICAL RECORDS. [facility]. provides no warranty or guara ntee of the accuracy or completeness of information in this document.The followi information is based on time limited clinical information
--- OUTSIDE RECORDS SUMMARY | 2019-10-14 09:08 | XMS REPORT | Encounter Summary ---
Author Author Department of [facility] СВЕТЛАНА moreno Organization [facility] of [facility] Address [address] [place] [id number] Phone Unavailable Support Name Relationship Address Phone Dipak SCHNEIDER Next Of Kin [address] [place] [id number] Dipak SCHNEIDER [address] [address] Insurance Providers: All historical and [...] Aguilar's Name Patient's Relationship to Policy Aguilar [facility] (WNR) PRIME Sep 13, 1997 WNR [id number] СВЕТЛАНА SCHNEIDER PATIENT Selected Encounter This section includes the [facility] for [facility]counter. Date/Time Encounter Type Encounter Description Reason Provider Source Mar 30, 2019 09:56 AM TO-EKG EKG EAS T[facility] [facility] Encounter Template Text not used by [facility] Assessments - Encounter Diagnoses No Data Provided for This Section Plan of Treatment: Future Appointments (+ 6 months) and Future Tests (+/- 45 day s) No Data Provided for This Section Surgical Procedures: All associated to the encounter This section includes all Surgical Procedures and Surgical Procedure Notes assoc iated to the Encounter. Surgical Procedures This section includes all Surgical Procedures associated to the Encounter. Surgical Procedure Date/Time Procedure Procedure Type Procedure Qualifiers Provider Source Mar 30, 2019 10:29 AM TO-EKG CLINICAL,DEVIC E PROXY SERVICE [facility] [facility] Surgical Notes This section includes all Surgical Notes associated to the Procedure. Date/Time Mar 30, 2019 12:59 PM CARDIOLOGY DIAGNOSTIC STUDY REPORT: LOCAL TITLE: CP TO EKG STANDARD TITLE: CARDIOLOGY DIAGNOSTIC STUDY REPORT DATE OF NOTE: MAR 30, 2019@12:59:28 ENTRY DATE: MAR 30, 2019@12:59:28 AUTHOR: CLINICAL,DEVICE PRO EXP COSIGNER: URGENCY: STATUS: COMPLETED PROCEDURE SUMMARY CODE: Machine Resulted DATE/TIME PERFORMED: MAR 30, 2019@10:29:4 DOCUMENT IN [facility] SEE FULL REPORT IN [facility] SIGNATURE NOT REQUIRED SEE SIGNATURE IN [facility]IST[facility]AG[facility] ([place] E[facility]-TO) AUTO-INSTRUMENT DIAGNOSIS Procedure: [id number] Lead ECG Release Status: Released Off-Line Verified Date Verified: Mar 30, 2019@12:59:26 Normal sinus rhythm with sinus arrhythmia Normal ECG When compared with ECG of 25-FEB-2018 10:51, No significant change was found Confirmed by Joon Dudley ([id number]) on 03/30/2019 12:59:25 PM Administrative Closure: 03/30/2019 by: DEVICE PROXY SERVICE CLINICAL Clinical Procedures Proxy Service CLINICAL,DEVICE PROXY SERVICE Lab Results: +/- 30 days of the [...] Range Comment Mar 30, 2019 10:51 AM [facility] HEMOGLOBIN A1C Specimen Type: BLOOD No comment entered. HEMOGLOBIN A1C 8.5 % H 4.0-6.0 Mar 30, 2019 10:51 AM [facility] URINALYSIS Specimen Type: URINE No comment [...] Adverse Reactions (ADR s) on record with [place] for the patient. The data comes from a [facility] treatment facilities. It does not list Allergies/ADRs that were removed or entered in error. Some allergies/ADRs may be reported in t Immunization section. Allergen Event Date Event Type Reaction(s) Severity Source No Allergy Assessment on File N. DEQUAN/S. MICHAEL VARELA Medications: [facility] dispensed (-15 months) and Non-VA [...] Encounter Note(s) Provider Source Mar 30, 2019 12:59 PM CARDIOLOGY DIAGNOSTIC STUDY REPORT: LOCAL TITLE: CP TO EKG STANDARD TITLE: CARDIOLOGY DIAGNOSTIC STUDY REPORT DATE OF NOTE: MAR 30, 2019@12:59:28 ENTRY DATE: MAR 30, 2019@12:59:28 AUTHOR: CLINICAL,DEVICE PRO EXP COSIGNER: URGENCY: STATUS: COMPLETED PROCEDURE SUMMARY CODE: Machine Resulted DATE/TIME PERFORMED: MAR 30, 2019@10:29:4 DOCUMENT IN [facility] SEE FULL REPORT IN [facility] SIGNATURE NOT REQUIRED SEE SIGNATURE IN [facility] ([place] E[facility]) AUTO-INSTRUMENT DIAGNOSIS Procedure: [id number] 12 Lead ECG Release Status: Released Off-Line Verified Date Verified: Mar 30, 2019@12:59:26 Normal sinus rhythm with sinus arrhythmia Normal ECG When compared with ECG of 25-FEB-2018 10:51, No significant change was found Confirmed by Joon Dudley ([id number]) on 03/30/2019 12:59:25 PM Administrative Closure: 03/30/2019 by: DEVICE PROXY SERVICE CLINICAL Clinical Procedures Proxy Service [facility]
--- OUTSIDE RECORDS SUMMARY | 2019-10-14 09:08 | XMS REPORT | Continuity of Care Document ---
Author Author Marcial PURVIS Organization [facility] Address Unknown Phone Unavailable Care Team Providers Care Business Solutions Architect Name Role Phone [facility] Unavailable Unavailable Problems Combined list of all problems from all Department of Defense and [facility] facilities. It does not include entries that were removed or entered in error. Problem Status Onset Date Problem Type Date of Resolution Comments Source Vaccines Prophylactic Need Against Influenza Inactive Condition [facility] Need For Vaccination Pneumococcal Inactive Condition [facility] Vaccines Prophylactic Need Against Viral Diseases Inactive Condition [facility] Patient Education Diabetes Dietary Counseling Inactive Condition [facility] Diabetes Patient Education - Blood Glucose Monitor Active Condition [facility] ICD-10-CM Z13.6 Encounter for screening for cardiovascular disorders with Provider Comments: Encounter for Screening for Cardiovascular Disorders active Diagnosis [facility] ICD-10-CM Z02.89 Encounter for other adm inistrative examinations with Provider Comments: Administrative Exam NEC active Diagnosis [facility] Medications Combined list of all outpatient medications recorded within the last 15 months b y all Department of Defense and Veterans Affairs facilities, and also all pati t-reported medications. Medication Details Route Status Patient Instructions Prescription Expires Prescript ion Number Last Dispense Date Ordering Pr ovider Order Date Source ATORVASTATIN CALCIUM (atorvastatin calci um), 40 MG, TABLET, ORAL, [employer] 1000 ea. BOTTLE Active [id number] 06/13/2019 SELF,ANAND 06/13/2019 [facility] ATORVASTATIN CALCIUM (atorvastatin calci um), 40 MG, TABLET, ORAL, [employer] 1000 ea. BOTTLE Active [id number] 09/14/2019 SELF,ANAND 09/14/2019 [facility] ATORVASTATIN CALCIUM (atorvastatin calci um), 40 MG, TABLET, ORAL, [employer] 1000 ea. BOTTLE Active [id number] 2019 SELF,ANAND 03/15/2019 [facility] ATORVASTATIN CALCIUM (atorvastatin calci um), 40 MG, TABLET, ORAL, [employer] 1000 ea. BOTTLE Active [id number] 02/14/2019 SELF,UNADILLA 02/15/2019 [facility] ATORVASTATIN CALCIUM (atorvastatin calci um), 40 MG, TABLET, ORAL, [employer] 1000 ea. BOTTLE Active [id number] 01/24/2019 [facility],UNADILLA 02/04/2019 [facility] ATORVASTATIN CALCIUM (atorvastatin calci um), 40 MG, TABLET, ORAL, [employer] 1000 ea. BOTTLE Active [id number] 10/04/2018 SELF,UNADILLA 10/05/2018 [facility] CELECOXIB (celecoxib), 200 MG, CAPSULE, ORAL, [employer], 100 ea. BOTTLE Active [id number] 02/16/2019 [facility], 02/19/2019 [facility] CELECOXIB (celecoxib), 200 MG, CAPSULE, ORAL, [employer], 100 ea. BOTTLE Active [id number] 12/22/2018 [facility], 01/22/2019 [facility] CELECOXIB (celecoxib), 200 MG, CAPSULE, ORAL, [employer], 100 ea. BOTTLE Active [id number] 01/25/2019 [facility], 02/01/2019 [facility] CELECOXIB (celecoxib), 200 MG, CAPSULE, ORAL, [employer], 100 ea. BOTTLE Active [id number] 10/25/2018 [facility], 10/25/2018 [facility] CELECOXIB (celecoxib), 200 MG, CAPSULE, ORAL, [employer], 100 ea. BOTTLE Active [id number] 11/20/2018 [facility], 01/05/2019 [facility] CELECOXIB (celecoxib), 200 MG, CAPSULE, ORAL, [employer] 500 ea. BOTTLE Active [id number] 03/15/2019 [facility],UNADILLA 03/16/2019 [facility] CELECOXIB (celecoxib), 200 MG, CAPSULE, ORAL, [employer] 500 ea. BOTTLE Active [id number] 05/26/2019 SELF,ANAND 05/27/2019 [facility] CELECOXIB (celecoxib), 200 MG, CAPSULE, ORAL, [employer] 500 ea. BOTTLE Active [id number] 08/24/2019 SELF,UNADILLA 08/25/2019 [facility] FLUBLOK QUAD [id number] (influenza virus vaccine qv 2018-20(18 yrs and older)rcmb/PF), 180MCG/0.5, SYRINGE, INTRAMUSC, SANOFI-PASTEUR, .5 ml SYRINGE Active [id number] 02/08/2019 [facility], 02/08/2019 [facility] GLIMEPIRIDE (glimepiride), 4 MG, TABLET, ORAL, [employer] 100 ea. BOTTLE Active [id number] 06/15/2019 SELF,UNADILLA 06/16/2019 [facility] GLIMEPIRIDE (glimepiride), 4 MG, TABLET, ORAL, [employer] 100 ea. BOTTLE Active [id number] 09/14/2019 SELF,ANAND 09/14/2019 [facility] GLIMEPIRIDE (glimepiride), 4 MG, TABLET, ORAL, [employer] 100 ea. BOTTLE Active [id number] 06/13/2019 SELF,UNADILLA 06/13/2019 [facility] GLIMEPIRIDE (glimepiride), 4 MG, TABLET, ORAL, [employer] 100 ea. BOTTLE Active [id number] 2019 SELF,UNADILLA 2019 [facility] GLIMEPIRIDE (glimepiride), 4 MG, TABLET, ORAL, [employer] 100 ea. BOTTLE Active [id number] 02/21/2019 SELF,UNADILLA 02/22/2019 [facility] GLIMEPIRIDE (glimepiride), 4 MG, TABLET, ORAL, [employer] 100 ea. BOTTLE Active [id number] 11/22/2018 SELF,UNADILLA 01/14/2019 [facility] INVOKANA (CANAGLIFLOZIN), 100 MG, TABLET , ORAL, ASYA PHARM., 90 ea. BOTTLE Active [id number] 04/04/2019 SELF,ANAND 04/08/2019 [facility] INVOKANA (CANAGLIFLOZIN), 100 MG, TABLET , ORAL, [employer]YA [employer]., 90 ea. BOTTLE Active [id number] 06/18/2019 SELF,ANAND 06/19/2019 [facility] INVOKANA (CANAGLIFLOZIN), 100 MG, TABLET , ORAL, [employer]YA [employer]ARM., 90 ea. BOTTLE Active [id number] 09/16/2019 SELF,UNADILLA 09/16/2019 [facility] JARDIANCE (EMPAGLIFLOZIN), 25 MG, TABLET , ORAL, BOEHRINGER ING., 90 ea. BOTTLE Active [id number] 2019 SELF,UNADILLA 2019 [facility] JARDIANCE (EMPAGLIFLOZIN), 25 MG, TABLET , ORAL, BOEHRINGER ING., 90 ea. BOTTLE Active [id number] 02/21/2019 SELF,UNADILLA 02/22/2019 [facility] JARDIANCE (EMPAGLIFLOZIN), 25 MG, TABLET , ORAL, BOEHRINGER ING., 90 ea. BOTTLE Active [id number] 11/22/2018 SELF,UNADILLA 01/14/2019 [facility] METFORMIN HCL (METFORMIN HCL), 1000 MG, TABLET, ORAL, [employer] 500 ea. BOTTLE Active [id number] 10/13/2019 [facility],UNADILLA 10/14/2019 [facility] METFORMIN HCL (METFORMIN HCL), 1000 MG, TABLET, ORAL, [employer] 500 ea. BOTTLE Active [id number] 07/15/2019 [facility],UNADILLA 07/15/2019 [facility] METFORMIN HCL (METFORMIN HCL), 1000 MG, TABLET, ORAL, [employer] 500 ea. BOTTLE Active [id number] 04/25/2019 [facility],UNADILLA 04/25/2019 [facility] METFORMIN HCL (METFORMIN HCL), 1000 MG, TABLET, ORAL, [employer] 500 ea. BOTTLE Active [id number] 01/24/2019 [facility],UNADILLA 02/04/2019 [facility] PNEUMOVAX 23 (PNEUMOCOCCAL 23-CARROLL P-SAC VAC), 25MCG/0.5, SYRINGE, INJECTION, MERCK SHARP & D, 0.5 ml SYRINGE Active [id number] [facility], 02/08/2019 [facility] PREDNISONE (PREDNISONE), 20MG, TABLET, O RAL, [employer], 500 ea. BOTTLE Active [id number] 08/08/2019 [facility], 08/09/2019 [facility] SHINGRIX (varicella-zoster virus glycopr otein E,rec/AS01B adjuvant/PF), 50 MCG/0.5, KIT, INTRAMUSC, GLAXOSMITHKLINE, 1 ea. KIT Active [id number] 04/30/2019 [facility], 05/01/2019 [facility] SHINGRIX (varicella-zoster virus glycopr otein E,rec/AS01B adjuvant/PF), 50 MCG/0.5, KIT, INTRAMUSC, GLAXOSMITHKLINE, 1 ea. KIT Active [id number] 02/08/2019 [facility], 02/08/2019 [facility] TRAMADOL HCL (TRAMADOL HCL), 50MG, TABLE T, ORAL, [employer]ARM, 1000 ea. BOTTLE Active [id number] 08/18/2018 [facility], 08/23/2018 [facility] TRIAMCINOLONE ACETONIDE (triamcinolone a cetonide), 0.1 %, OINT. (G), TOPICAL, [employer], 454 g JAR Active [id number] 08/08/2019 [facility],UNADILLA 08/09/2019 [facility] TRIAMCINOLONE ACETONIDE (TRIAMCINOLONE A CETONIDE), 0.1%, OINT.(GM), TOPICAL, [employer] 454 g JAR Active [id number] 08/09/2019 SEL[facility], 08/09/2019 [facility] TRULICITY (DULAGLUTIDE), 1.5 MG/0.5, PEN INJCTR, SUB-Q, [employer] 0.5 ml SYRINGE Active [id number] 07/25/2019 [facility],UNADILLA 07/26/2019 [facility] Allergies, Adverse Reactions, Alerts Combined list of all allergies from all Department of Defense and Veterans Affairs facilities. It does not include entries that were removed or entered in error. Substance Category R eaction Severity Reaction type Status Date Reported Comments Source No Known Allergies Drug allergy Drug allergy active 05/11/[address] [facility] [place] Immunizations Combined list of: 1) all immunizations on record at all [facility] ies, and 2) all available immunizations on record at Department of Defense (Do D) facilities. Some immunizations on record at [facility] may not be included. Immunization Series Date Given Administered By Site Reaction Lot Number CVX Code Drug Passenger Service Supervisor Status Comments Source Influenza, injectable, quadrivalent, preservative free 1 02/28/2015 [facility] PLAZA [id number] [place] [address] (SKB) completed Influenza, injectabl e, quadrivalent, preservative free DoD pneumococcal polysaccharide vaccine, 23 valent 1 02/18/2012 HADDOX, JESUSITA A [id number] [employer] (MSD) completed pneumococcal polysaccharide vaccine, 23 valent DoD zoster vaccine, live 1 02/18/2012 HADDOX, JESUSITA A [id number] [employer]ck (MSD) completed zoster vaccine, live DoD Influenza, injectable, [place] Can[employer] Kidney, quadrivalent with preservative 1 02/18/2012 HADDOX, JESUSITA A [id number] [facility] [employer] [place]. (CS) completed Influenza, injectable, [place] Canin e Kidney, quadrivalent with preservative DoD influenza virus vaccine, whole virus 1 04/02/2007 THEO ADAME [id number] Other (OTH) completed influenza virus vaccine, whole virus DoD Results Combined list of recent chemistry, hematology and other laboratory results going back no more than 15 months from the Department of Defense and Veterans Affairs facilities. Order Name Results Value Reference Range Date Interpretation Specimen Comments Source HEMOGLOBIN A1C HEMOGLOBIN A1C/ HEMOGLOBIN.TOTAL IN BLOOD BY HPLC 8.5 % 4.0 - 6.0 03/30/2019 H Specimen Type: BLOOD No comment entered. [facility] [facility] URINALYSIS COLOR OF URINE Yello w 03/30/2019 Specimen Type: URINE No comment entered. [facility] [place] URINALYSIS SPECIFIC GRAVITY OF URINE 1.029 03/30/2019 Specimen Type: URINE No comment entered. [facility] [place] URINALYSIS UROBILINOGEN [MASS/VOLUME ] IN URINE Negativemg/dL 0.1 - 1.0 03/30/2019 Specimen Type: URINE No comment entered. [facility] [place] URINALYSIS BILIRUBIN.TOTAL [RI ESENCE] IN URINE BY TEST STRIP Negative 1 05/31/2018 Specimen Type: URINE No comment entered. [facility] URINALYSIS KETONES [MASS/VOLUME] IN URINE BY TEST STRIP 5 mg/dl 03/30/2019 Specimen T ype: URINE No comment entered. [facility] URINALYSIS GLUCOSE [MASS/VOLUME] IN URINE BY TEST STRIP >=500mg/dL 03/30/2019 Specimen T ype: URINE No comment entered. [facility] URINALYSIS PROTEIN [MASS/VOLUME] IN URINE BY TEST STRIP Negativemg/dl - Trace" 03/30/2019 Specimen Type: URINE No comment entered. [facility] URINALYSIS PH OF URINE BY TEST STRIP 5.0 03/30/2019 Specimen Type: URINE No comment entered. [facility] URINALYSIS MUCUS [#/AREA] IN U RINE SEDIMENT BY MICROSCOPY LOW POWER FIELD Trace/LPF 03/30/2019 Specimen Type: URINE No comment entered. [facility] URINALYSIS APPEARANCE OF URINE Clear 03/30/2019 Specimen Type: URINE No comment entered. [facility] URINALYSIS HEMOGLOBIN [PRESENCE] IN URINE Small 03/30/2019 Specimen Type: URINE No comment entered. [facility] URINALYSIS NITRITE [PRESENCE] IN URI NE BY TEST STRIP Negative 03/30/2019 Specimen T ype: URINE No comment entered. [facility] URINALYSIS LEUKOCYTE ESTERASE [PRESENCE] IN URINE BY TEST STRIP Negative 1 05/31/2018 Specimen Type: URINE No comment entered. [facility] URINALYSIS LEUKOCYTES [#/AREA] IN URINE SEDIMENT BY MICROSCOPY HIGH POWER FIELD 0-2WBC/HPF 0 - 5 03/30/2019 Specimen Type: URINE No comment entered. [facility] URINALYSIS ERYTHROCYTES [#/VOL UME] IN URINE SEDIMENT BY MICROSCOPY HIGH POWER FIELD 0-2RBC/HPF 0 - 2 03/30/2019 Specimen Type: URINE No comment entered. [facility] URINALYSIS EPITHELIAL CELLS.SQ UAMOUS [#/AREA] IN URINE SEDIMENT BY MICROSCOPY HIGH POWER FIELD Trace/HPF 03/30/2019 Specimen Type: URINE No comment entered. [facility] QUANTIFERON GOLD-TB MYCOBACTER IUM TUBERCULOSIS TUBERCULIN STIMULATED GAMMA INTERFERON [PRESENCE] IN BLOOD NEGATIVE 02/25/2018 Specimen Type: BLOOD No comment entered. [facility] QUANTIFERON GOLD-TB MYCOBACTER IUM TUBERCULOSIS STIMULATED GAMMA INTERFERON RELEASE BY CD4+ T-CELLS [UNITS/VOLUME] IN BLOOD 0.04 IU/mL 02/25/2018 Specimen T ype: BLOOD No comment entered. [facility] QUANTIFERON GOLD-TB MYCOBACTER IUM TUBERCULOSIS TUBERCULIN STIMULATED GAMMA INTERFERON/MITOGEN STIMULATED GAMMA INTERFERON [UNITS/VOLUME] IN CONTROL BLOOD 9.73 IU/mL 02/25/2018 Specimen Type: BLOOD No comment entered. [facility] [place] [facility] QUANTIFERON GOLD-TB MYCOBACTER IUM TUBERCULOSIS STIMULATED GAMMA INTERFERON RELEASE BY CD4+ T-CELLS [UNITS/VOLUME] CORRECTED FOR BACKGROUND IN BLOOD <0.00IU/ml 02/25/2018 Specimen Type: BLOOD No comment entered. [facility] [place] [facility] URINALYSIS COLOR OF URINE Yello w 02/25/2018 Specimen Type: URINE No comment entered. [facility] [place] [facility] URINALYSIS SPECIFIC GRAVITY OF URINE 1.029 02/25/2018 Specimen Type: URINE No comment entered. [facility] URINALYSIS UROBILINOGEN [MASS/VOLUME ] IN URINE Negativemg/dL 0.1 - 1.0 02/25/2018 Specimen Type: URINE No comment entered. [facility] URINALYSIS BILIRUBIN.TOTAL [RI ESENCE] IN URINE BY TEST STRIP Negative 1 04/27/2017 Specimen Type: URINE No comment entered. [facility] [place] [facility] URINALYSIS KETONES [MASS/VOLUME] IN URINE BY TEST STRIP Negativemg/dl 02/25/2018 Specimen Type: URINE No comment entered. [facility] [place] [facility] URINALYSIS GLUCOSE [MASS/VOLUME] IN URINE BY TEST STRIP >=500mg/dL 02/25/2018 Specimen T ype: URINE No comment entered. [facility] [place] [facility] URINALYSIS PROTEIN [MASS/VOLUME] IN URINE BY TEST STRIP Negativemg/dl - Trace" 02/25/2018 Specimen Type: URINE No comment entered. [facility] [place] [facility] URINALYSIS PH OF URINE BY TEST STRIP 5.0 02/25/2018 Specimen Type: URINE No comment entered. [facility] [place] [facility] URINALYSIS APPEARANCE OF URINE Clear 02/25/2018 Specimen Type: URINE No comment entered. [facility] [place] [facility] URINALYSIS HEMOGLOBIN [PRESENCE] IN URINE Negative 02/25/2018 Specimen Type: URINE No comment entered. [facility] [place] [facility] URINALYSIS NITRITE [PRESENCE] IN URI NE BY TEST STRIP Negative 02/25/2018 Specimen T ype: URINE No comment entered. [facility] [place] [facility] URINALYSIS LEUKOCYTE ESTERASE [PRESENCE] IN URINE BY TEST STRIP Negative 1 04/27/2017 Specimen Type: URINE No comment entered. [facility] HEMOGLOBIN A1C HEMOGLOBIN A1C/ HEMOGLOBIN.TOTAL IN BLOOD BY HPLC 7.6 % 4.0 - 6.0 02/25/2018 H Specimen Type: BLOOD No comment entered. [facility] Vital Signs No Data Provided for This Section Encounters Combined list of encounters at Department of Defense and/or Veterans Affairs (VA ) for the last 15 months. Not all VA inpatient encounters are included. The incl uded entries comply with the patient's data sharing authorizations. Location Location Details Encounter Type Encounter Number Reason For Visit Attending Provider ADM Date DC Date Status Disposition Source OUTPATIENT [id number] albina JENISE ABARCA 10/02/2006 Released w/o Limitations [place](Consult[place]) OUTPATIENT [id number] New Glucometer CONCEPCION CARMONA 07/16/2010 Released w /o Limitations [place] OUTPATIENT [id number] Notes Entered by: ALLYSSA DOMÍNGUEZ 18 Feb 2012 0928 FLU, PNEUMOVAX HADXJESUSITA 02/18/2012 Released w/o Limitations [place](Immun[place] OUTPATIENT [id number] Notes Entered by: JESUSITA MCCONNELL 28 Feb 2015 1307 FLU JENISE ROBERSON I 02/28/2015 Released w/o Limitations [place]) TO-EKG [id number] _MAPID :endReason4 03/30/2019 [facility] DIV OFFICE/[place] [id number] ICD-10 -CM Z02.89 Encounter for other administrative examinations with Provider Comments: Administrative Exam NEC MARI GAUTHIER 03/30/2019 [facility] Outpatient Encounter [id number] ICD-10 -CM Z13.6 Encounter for screening for cardiovascular disorders with Provider Comments: Encounter for Screening for Cardiovascular Disorders ALESSANDRA MARIE-ELIZABETH 03/30/2019 [facility] [facility] Outpatient Encounter [id number] _MAPID :endReason1 06/29/2019 [facility] Procedures Combined list of general procedure/surgical history for the last 15 months on re cord at Department of Defense and Veterans Affairs (VA) facilities. Not all VA p rocedures are included. Procedure Procedure Type Code Date Perfomer Comments Source Influenza Split Virus Vaccine 0.5mL Dosa ge IM Preserv Free Quadrivalent 02/28/2015 [facility]ZA Influenza Seasonal, injectable quadrivalent - preservative free; Series #: 1; .5 mL; IM; Right Arm; Mfg: [employer]; Lot: [id number]; VIS given (Brina: 11/17/14). DoD Immunization Administration One Vaccine Immunization Administration One Vaccine [id number] 02/28/2015 IFRAH PLAZA DoD Influenza Split Virus Vaccine 0.5mL Dosa ge Intramuscular 02/18/2012 HADDOX, JESUSITA A Influenza Spl it (Injectable); Series #: 1; .5 mL; IM; Left Arm; Mfg: [employer].; Lot: [id number]; VIS given (Brina: 10/13/11). DoD Immunization Administration Each Additional Vaccine 02/18/2012 HADDOX, JESUSITA A DoD Pneumococcal Polysaccharide Vaccine (Age 2Y+) Pneumococcal Polysaccharide Vaccine (Age 2Y+) [id number] 02/18/2012 HADDOX, JESUSITA A Pneumococcal; Series #: 1; .5 mL; IM; Le ft Arm; Mfg: [email or web address]; Lot: [id number]; VIS given (Brina: 01/16/2009). DoD Zoster Vaccine Live Zoster Vac cine Live [id number] 02/18/2012 HADDOX, JESUSITA A Zoster, Live; Series #: 1; .65 mL; SC; L eft Arm; Mfg: [email or web address]; Lot: [id number]; VIS given (Brina: 01/16/2009). DoD Vaccines Vaccines 52664 02/18/2012 HADDOX, JESUSITA A Influenza Split (Injectable); Series #: 1; .5 mL; IM; Left Arm; Mfg: [employer], [place] Lot: [id number]; VIS given (Brina: 10/13/11). [facility] Diabetes outpatient self-management yahaira [facility] services, individual, per 30 minutes 10/08/2006 [facility] [facility] Social History Combined list of available smoking, tobacco, and other social history on record at Department of Defense and/or Veterans Affairs facilities. The included entrie s comply with the patient's data sharing authorizations. Social History Type Response Date Comment Source This section is an empty social history section. [facility] Assessment and Plan No Data Provided for This Section Plan of Care No Data Provided for This Section Family History No Data Provided for This Section Advance Directives No Data Provided for This Section Functional Status No Data Provided for This Section
--- OUTSIDE RECORDS SUMMARY | 2019-10-14 09:09 | XMS REPORT | Continuity of Care Document ---
Author Organization Unknown Address Unknown Phone Unavailable Allergies Active Description Code Type Severity Reaction Onset Reported/Identified Relationship to Patient Clinical Status Yes No known allergies Drug N/A N/A Yes No Allergy Information Available [id number] Drug Allergy Unknown N/A 017 Yes No Known Drug Allergies [id number] Drug Allergy Unknown N/A 11/20/2016 Medications There is no data. 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 Results Test Result Range Automated blood complete blood count (he mogram) panel - 11/20/16 08:14 Blood leukocytes automated count (number/volume) 8.4 10*3/uL 4.3-11.0 Blood erythrocytes automated count (number/volume) 5.18 10*6/uL 4.35-5.85 Venous blood hemoglobin measurement (mass/volume) 14.7 g/dL 13.3-17.7 Blood hematocrit (volume fraction) 44 % 40-54 Automated erythrocyte mean corpuscular volume 85 [ foz_us] 80-99 Automated erythrocyte mean corpuscular h emoglobin (mass per erythrocyte) 28 pg 25-34 Automated erythrocyte mean corpuscular h emoglobin concentration measurement (mass/volume) 34 g/dL 32-36 Automated erythrocyte distribution width ratio 15. 4 % 10.0- 14.5 Automated blood platelet count (count/volume) 206 10*3/uL 130-400 Automated blood platelet mean volume measurement 9.9 [foz_us] 7.4-10.4 PT panel in platelet poor plasma by coag ulation assay - 11/20/16 08:14 Prothrombin time (PT) in platelet poor plasma by coagu lation assay 13.0 s 12.2-14.7 INR in platelet poor plasma or blood by coagulation as say 1.0 0.8-1.4 Activated partial thromboplastin time (a PTT) in platelet poor plasma bycoagulation assay - 11/20/16 08:14 Activated partial thromboplastin time (a PTT) in platelet poor plasma bycoagulation assay 29 s 24-35 PSA (FREE AND TOTAL) - 03/14/19 07:50 PSA, TOTAL 1.3 ng/mL < OR = 4.0 PSA, FREE 0.6 ng/mL NRG PSA, % FREE 46 % (calc) >25 CMP - 06/13/19 07:26 GLUCOSE 144 mg/dL 65-99 UREA NITROGEN (BUN) 19 mg/dL 7-25 CREATININE 0.80 mg/dL 0.70-1.25 eGFR NON-AFR. MARSHALLESE 92 mL/min/1.73m2 > OR = 60 eGFR 106 mL/min/1.73m2 > OR = 60 BUN/CREATININE RATIO NOT APPLICABLE (calc) 6-22 SODIUM 140 mmol/L 135-146 POTASSIUM 4.3 mmol/L 3.5-5.3 CHLORIDE 106 mmol/L 98-110 CARBON DIOXIDE 25 mmol/L 20-32 CALCIUM 9.2 mg/dL 8.6-10.3 PROTEIN, TOTAL 6.9 g/dL 6.1-8.1 ALBUMIN 4.3 g/dL 3.6-5.1 GLOBULIN 2.6 g/dL (calc) 1.9-3.7 ALBUMIN/GLOBULIN RATIO 1.7 (calc) 1.0-2. 5 BILIRUBIN, TOTAL 0.5 mg/dL 0.2-1.2 ALKALINE PHOSPHATASE 116 U/L 35-144 AST 16 U/L 10-35 ALT 10 U/L 9-46 A1C - 06/13/19 07:26 HEMOGLOBIN A1c 7.8 % of total Hgb <5.7 A1C - 09/14/19 07:33 HEMOGLOBIN A1c 7.4 % of total Hgb <5.7 Encounters ACCT No. Visit Date/Time Discharge Status Pt. Type Provider Facility Loc./Unit Complaint [id number] 09/19/2019 09:00:00 09/19/2019 23:59: 59 CLS Outpatient SERENE, ANAND Holt [facility] [id number] 09/14/2019 07:15:00 Document Registration [id number] 06/13/2019 07:30:00 Document Registration [id number] 2019 07:45:00 Document Registration [id number] 11/20/2016 07:17:00 017 15:01:00 DIS Outpatient SELVIN BUENO, LOC [facility] RAD SPINAL STENOSIS [id number] 12/20/2016 12:35:00 ACT Unknown [id number] 11/07/2016 13:51:48 7 23:59:59 CLS Preadmit [facility] DAYDAY Surgery gr laser turp
--- OUTSIDE RECORDS SUMMARY | 2019-10-14 09:09 | XMS REPORT | Clinical Summary ---
Author Author Admin, Marcial Holt Organization [facility] Address Unknown Phone Unavailable Allergies, Adverse [...] cap by mouth daily MULTIPL E VITAMIN 82104668386 Active Kaycee Elmore MD Active ASPIRIN 81 MG ORAL TBEC 1 po qd ASPIRIN 79700015425 A ctive Kaycee Elmore MD Active METFORMIN HCL 1000 MG TABS 1 tablet by mouth twice daily METFORMIN HCL 46113906169 Active Kaycee Elmore MD Active ATORVASTATIN CALCIUM 10 MG TABS 1 pill by mouth nightly, for cholesterol ATORVASTATIN CALCIUM 74065370602 Active Kaycee Elmore MD Active FLOMAX 0.4 MG CAPS 1 Daily TAMSULOSIN HCL 80457762899 Active Kaycee Elmore MD Active JARDIANCE 10 MG ORAL TABS 1 tablet daily for diabetes EMPAGLIFLOZIN 09310501005 Active Kaycee Elmore MD Active GLIMEPIRIDE 4 MG ORAL TABS 1 po BID GLIMEPIRIDE 71801 773620 Active Kaycee Elmore MD Active Advance Directives [...] ng/mL Encounters Code Encounter Date Provider Facility CPT-50061 Level 4 New Patient 01:01:31 CDT Kaycee smith MD [facility] Procedures Code Procedure Name Date Entry Date Standard Desc ription CPT-81784 Postop F/U Visit 13:19:53 CDT CPT-33597 Bladder Scan 01:01:32 CDT
--- OUTSIDE RECORDS SUMMARY | 2019-10-14 09:09 | XMS REPORT | Clinical Summary ---
Author Author Admin, Marcial Holt Organization [facility] Address Unknown Phone Unavailable [...] cap by mouth daily MULTIPL E VITAMIN 73048652073 Active Kaycee Elmore MD Active ASPIRIN 81 MG ORAL TBEC 1 po qd ASPIRIN 75249966269 A ctive Kaycee Elmore MD Active METFORMIN HCL 1000 MG TABS 1 tablet by mouth twice daily METFORMIN HCL 91423398777 Active Kaycee Elmore MD Active ATORVASTATIN CALCIUM 10 MG TABS 1 pill by mouth nightly, for cholesterol ATORVASTATIN CALCIUM 08244125079 Active Kaycee Elmore MD Active FLOMAX 0.4 MG CAPS 1 Daily TAMSULOSIN HCL 66414532467 Active Kaycee Elmore MD Active JARDIANCE 10 MG ORAL TABS 1 tablet daily for diabetes EMPAGLIFLOZIN 22162066610 Active Kaycee Elmore MD Active GLIMEPIRIDE 4 MG ORAL TABS 1 po BID GLIMEPIRIDE 14764 773107 Active Kaycee Elmore MD Active Advance Directives [...] weight E&M 244 [lb_av] Weight Measure d Encounters Code Encounter Date Provider Facility CPT-51427 Level 4 New Patient 01:01:31 CDT Kaycee smith MD [facility] Procedures Code Procedure Name Date Entry Date Standard Desc ription CPT-56616 Postop F/U Visit 13:19:53 CDT CPT-41184 Bladder Scan 01:01:32 CDT
[2019-10-14] MEDS ORDERED: LIDOCAINE 1% INJ 20 ML 20 ML VIAL ONE (09:10)
[2019-10-14] MEDS ORDERED: LIDOCAINE/EPI 2% 1:100,00 (XYLOCAINE) 20 ML VIAL ONE (09:14)
--- NOTE | 2019-10-14 09:22 | ED Trauma-Multisystem ---
General Chief Complaint: Trauma-Non Activation Stated Complaint: FALL; HEAD LAC Nursing Triage Note: Patient reports tripping over bag of top soil in garage. Laceration to right forehead above eyebrow History of Present Illness Date Seen by Provider: Oct 14, 2019 Time Seen by Provider: 09:00 Initial Comments The patient is a 69-year-old male with history of hyperlipidemia and kyo-dcgixmn-ufmttocoh diabetes. He is on a daily baby aspirin but does not take any other blood thinners. Tetanus is not up-to-date. He presents with concern for a laceration above his right eyebrow with onset after a ground-level fall, mechanical in nature, occurring just prior to arrival. Patient was walking in his garage and tripped over a bag of topsoil and fell forward, landing on his outstretched hands and striking his forehead against the ground. No loss of consciousness, nausea or vomiting or amnesia to events. Patient denies any contributory lightheadedness, dizziness, shortness of breath or chest pain. He states he is not having any pain anywhere aside from to the laceration to his forehead. He denies other pain to head, neck pain, pain to chest wall or abdomen or back or arms or legs. He ambulated in with a narrow, steady gait and is alert and oriented 4 and pleasantly and appropriately interactive and in absolutely no acute distress upon initial assessment here in the emergency department. Allergies and Home Medications Allergies Coded Allergies: No Known Drug Allergies (Unverified , 11/20/16) Home Medications Aspirin 81 Mg Tablet.dr, 81 MG PO DAILY, (Reported) Atorvastatin Calcium 40 Mg Tablet, 40 MG PO HS, (Reported) Empagliflozin 25 Mg Tablet, 25 MG PO DAILY, (Reported) Exenatide Microspheres 2 Mg/0.65 Ml Pen.injctr, 2 MG SQ Sa, (Reported) Glimepiride 4 Mg Tablet, 4 MG PO DAILY, (Reported) Metformin HCl 1,000 Mg Tablet, 1,000 MG PO BID, (Reported) Multivitamin 1 Each Tablet, 1 TAB PO DAILY, (Reported) Tamsulosin HCl 0.4 Mg Cap.er.24h, 0.4 MG PO 1730, (Reported) Patient Home Medication List Home Medication List Reviewed: Yes Review of Systems Review of Systems Constitutional: see HPI All Other Systems Reviewed Negative Unless Noted: Yes (Negative excepted noted.) Past Htjtetv-Stwgza-Bgsxtl Hx Past Med/Social Hx: Reviewed Nursing Past Med/Soc Hx Patient Social History Alcohol Use: Denies Use Recreational Drug Use: No Recent Foreign Travel: No Contact w/Someone Who Travel: No Recent Infectious Disease Expo: No Recent Hopitalizations: No Immunizations Up To Date Tetanus Booster (TDap): More than 5yrs Date of Pneumonia Vaccine: Jul 12, 2014 Seasonal Allergies Seasonal Allergies: No Past Medical History Surgeries: Yes Gallbladder Respiratory: No Cardiac: Yes High Cholesterol Neurological: No Neuropathy Reproductive Disorders: No Sexually Transmitted Disease: No HIV/AIDS: No Prostate Problems, UTI-Chronic Gastrointestinal: No Arthritis, Chronic Back Pain Endocrine: Yes Loss of Vision: Denies Hearing Impairment: Denies Cancer: No Psychosocial: No Integumentary: No Blood Disorders: No Family Medical History Reviewed Nursing Family Hx Physical Exam Vital Signs Vital Signs - First Documented 10/14/19 09:06 Temp 36.1 Pulse 75 Resp 16 B/P (MAP) 133/70 (91) Pulse Ox 95 Height, Weight, BMI Height: 6'4.00" Weight: 234lbs. 6.0oz. 106.500062je; 29.00 BMI Method: General Appearance: No Apparent Distress This is an older male appearing nontoxic and in no acute distress. Head is normocephalic and with a 2 cm linear laceration noted to the right forehead inferiorly. No other signs of trauma to her head or scalp or face or neck. No hemotympanum. No other signs of basilar fracture. Neck is supple and nontender. Oropharynx is moist. Lungs are clear to auscultation at all stations. There is a normal S1 and S2 without rubs or gallops and capillary refill is appropriate, less than 2 seconds globally. Abdomen is soft, nontender and nondistended. Skin is warm and dry without cyanosis, clubbing or edema. Psychiatrically, the patient demonstrates appropriate mood and affect and is alert. Neurologically, cranial nerves II through XII are intact and there are no lateralizing deficits noted. Speech is normal. Language is normal. Coordination is normal. There is no dysmetria with finger to nose or japo-du-nzcq bilaterally. Strength is 5 out of 5 in all joints of bilateral upper and lower extremities. Sensation is intact to light touch in bilateral upper and lower extremities. The patient ambulates with a narrow, steady gait in the emergency department and is alert and oriented 4. Procedures/Interventions Wound Location: Face Wound Length (cm): 2 Wound's Depth, Shape: sub Q Wound Explored: clean Irrigated w/ Saline (ccs): 500 Anesthesia: Lidocaine w/ Epi Volume Anesthetic (ccs): 6 Suture: Ethlion Suture Size: 3-0 Number of Sutures: 6 Layer Closure?: 1 Progress Tolerated welll, no complications Progress/Results/Core Measures Results/Orders My Orders Orders - KYLE OROURKE MD Lidocaine 1% Inj 20 Ml (Xylocaine 1% Inj (10/14/19 09:10) Dipht,Pertuss(Acell),Tet Adult (Boostrix (10/14/19 09:30) Lidocaine/Epi 2% 1:100,000 (Xylocaine/Ep (10/14/19 09:30) Acetaminophen Tablet/Caplet (Tylenol T (10/14/19 09:30) Lidocaine/Epi 2% 1:100,000 (Xylocaine/Ep (10/14/19 09:14) Medications Given in ED Current Medications Medications Dose Ordered Sig/Quirino Route Start Time Stop Time Status Last Admin Dose Admin Acetaminophen 975 mg ONCE ONCE PO 10/14/19 09:30 10/14/19 09:31 DC 10/14/19 09:26 975 MG Diphtheria/ Tetanus/Acell Pertussis 0.5 ml ONCE ONCE IM 10/14/19 09:30 10/14/19 09:31 DC 10/14/19 09:26 0.5 ML Lidocaine/ Epinephrine 20 ml ONCE ONCE INJ 10/14/19 09:30 10/14/19 09:31 DC 10/14/19 09:30 20 ML Vital Signs/I&O 10/14/19 09:06 Temp 36.1 Pulse 75 Resp 16 B/P (MAP) 133/70 (91) Pulse Ox 95 Blood Pressure Mean: 91 Progress Progress Note : Time: 09:21 Progress Note Well-appearing 69-year-old gentleman who presents for a forehead laceration after a mechanical ground-level fall at home prior to arrival. No indication for advanced imaging by [place] rules at this time. Plan for copious wash out of laceration and repair with suture, then home with medication for discomfort. Patient is in agreement with this plan of care. 0940: laceration repaired without complication as per procedure note. Patient tolerated repair well. He remains AAOx4, in NAD, and is ambulatory in the ED with a narrow, steady gait. We will proceed with discharge. The patient understands that if he develops significant headache, nausea or vomiting, alteration in level of consciousness or any other new symptoms of concern that he is to return to the emergency department immediately for reevaluation. is going to watch him closely today. Patient is to return in 5 days for suture removal, or before that as needed. All questions are answered. Departure Impression Primary Impression: Laceration of forehead without complication Qualified Codes: S01.81XA - Laceration without foreign body of other part of head, initial encounter Disposition: 01 HOME, SELF-CARE Condition: Improved Departure-Patient Inst. Referrals: ANAND CAST MD (PCP/Family) Primary Care Physician Patient Instructions: Laceration Repair Add. Discharge Instructions: Return to the emergency department or follow-up with your primary care physician in about 5 days for removal of sutures and further care. You may take Tylenol as needed for discomfort at home. Return to this emergency department in the meantime right away if you develop worsening symptoms of any kind or have any o ther new symptoms of concern. KYLE OROURKE MD Oct 14, 2019 09:22
[2019-10-14] MEDS ORDERED: ACETAMINOPHEN 325 MG TABLET PO ONE (09:30)
[2019-10-14] MEDS ORDERED: LIDOCAINE/EPI 2% 1:100,00 (XYLOCAINE) 20 ML VIAL INJ ONE (09:30)
[2019-10-14] MEDS ORDERED: TETANUS,DIPTH,PERTUSS P/F (BOOSTRIX) 0.5 ML VIAL IM ONE (09:30)
[2019-10-14 09:45] VITALS: BP 133/70
== END 2019-10-14 09:45 | disposition home or self-care (01) ==
LOC: EDUNIT# 09:02 → ER FS 09:03
DX: S01.81XA Laceration without foreign body of other part of head, initial encounter (principal); E78.00 Pure hypercholesterolemia, unspecified; E11.40 Type 2 diabetes mellitus with diabetic neuropathy, unspecified; M19.90 Unspecified osteoarthritis, unspecified site; E78.5 Hyperlipidemia, unspecified; M54.9 Dorsalgia, unspecified; Z79.82 Long term (current) use of aspirin; Z79.899 Other long term (current) drug therapy; Z79.84 Long term (current) use of oral hypoglycemic drugs; W18.31XA Fall on same level due to stepping on an object, initial encounter; Y92.015 Private garage of single-family (private) house as the place of occurrence of the external cause; Z23 Encounter for immunization
CPT/HCPCS: 12001; 90471; 90715

== ENCOUNTER 2019-10-19 08:44 | Emergency (ER) | payer MEDICARE, OTHER ==
[~2019-10-19] VITALS: Ht 185 cm; Wt 100.0 kg
[2019-10-19 09:06] VITALS: BP 116/57
--- OUTSIDE RECORDS SUMMARY | 2019-10-19 09:08 | XMS REPORT | Continuity of Care Document ---
Author Author Marcial PURVIS Organization [facility] Address Unknown Phone Unavailable Care Team Providers Care Nurse Researcher Name Role Phone [facility] Unavailable Unavailable Problems Combined list of all problems from all Department of Defense and [facility] facilities. It does not include entries that were removed or entered in error. Problem Status Onset Date Problem Type Date of Resolution Comments Source Vaccines Prophylactic Need Against Influenza Inactive Condition [facility] Need For Vaccination Pneumococcal Inactive Condition [facility] Vaccines Prophylactic Need Against Viral Diseases Inactive Condition [facility] Patient Education Diabetes Dietary Counseling Inactive Condition [facility] Diabetes Patient Education - Blood Glucose Monitor Active Condition [facility] ICD-10-CM Z13.6 Encounter for screening for cardiovascular disorders with Provider Comments: Encounter for Screening for Cardiovascular Disorders active Diagnosis [facility] [place] [facility] ICD-10-CM Z02.89 Encounter for other adm inistrative examinations with Provider Comments: Administrative Exam NEC active Diagnosis [facility] Medications Combined list of all [...] ORAL, [employer] 1000 ea. BOTTLE Active [id number] 06/13/2019 SELF,ANAND 06/13/2019 [facility] ATORVASTATIN CALCIUM (atorvastatin calci um), 40 MG, TABLET, ORAL, [employer] 1000 ea. BOTTLE Active [id number] 09/14/2019 SELF,ANAND 09/14/2019 [facility] ATORVASTATIN CALCIUM (atorvastatin calci um), 40 MG, TABLET, ORAL, [employer] 1000 ea. BOTTLE Active [id number] 2019 SELF,ANAND 03/15/2019 [facility] ATORVASTATIN CALCIUM (atorvastatin calci um), 40 MG, TABLET, ORAL, [employer] 1000 ea. BOTTLE Active [id number] 02/14/2019 SELF,[place] 02/15/2019 [facility] ATORVASTATIN CALCIUM (atorvastatin calci um), 40 MG, TABLET, ORAL, [employer] 1000 ea. BOTTLE Active [id number] 01/24/2019 [facility] 02/04/2019 [facility] Facility ATORVASTATIN CALCIUM (atorvastatin calci um), 40 MG, TABLET, ORAL, [employer] 1000 ea. BOTTLE Active [id number] 10/04/2018 SELF,[place] 10/05/2018 [facility] CELECOXIB (celecoxib), 200 MG, CAPSULE, ORAL, ALEMBIC PHARMAC, 100 ea. BOTTLE Active [id number] 02/16/2019 [facility], 02/19/2019 Pharmacy Data Trans action Service Facility CELECOXIB (celecoxib), 200 MG, CAPSULE, ORAL, [employer]LE[employer]IC PHARMAC, 100 ea. BOTTLE Active [id number] 12/22/2018 [facility], 01/22/2019 [facility] Facility CELECOXIB (celecoxib), 200 MG, CAPSULE, ORAL, ALEMBIC PHARMAC, 100 ea. BOTTLE Active [id number] 01/25/2019 [facility], 02/01/2019 [facility] Facility CELECOXIB (celecoxib), 200 MG, CAPSULE, ORAL, ALEMBIC PHARMAC, 100 ea. BOTTLE Active [id number] 10/25/2018 [facility], 10/25/2018 Pharmacy [facility] Facility CELECOXIB (celecoxib), 200 MG, CAPSULE, ORAL, ALEMBIC PHARMAC, 100 ea. BOTTLE Active [id number] 11/20/2018 [facility], 01/05/2019 [facility] Facility CELECOXIB (celecoxib), 200 MG, CAPSULE, ORAL, [employer] 500 ea. BOTTLE Active [id number] 03/15/2019 [facility] 03/16/2019 [facility] CELECOXIB (celecoxib), 200 MG, CAPSULE, ORAL, [employer] 500 ea. BOTTLE Active [id number] 05/26/2019 SELF,ANAND 05/27/2019 [facility] CELECOXIB (celecoxib), 200 MG, CAPSULE, ORAL, [employer] 500 ea. BOTTLE Active [id number] 08/24/2019 SELF,[place] 08/25/2019 [facility] Facility FLUBLOK QUAD [id number] (influenza virus vaccine qv 2018-20(18 yrs and older)rcmb/PF), 180MCG/0.5, SYRINGE, INTRAMUSC, SANOFI-PASTEUR, .5 ml SYRINGE Active [id number] 02/08/2019 [facility], 02/08/2019 [facility] GLIMEPIRIDE (glimepiride), 4 MG, TABLET, ORAL, [employer] 100 ea. BOTTLE Active [id number] 06/15/2019 SELF,[place] 06/16/2019 [facility] GLIMEPIRIDE (glimepiride), 4 MG, TABLET, ORAL, [employer] 100 ea. BOTTLE Active [id number] 09/14/2019 SELF,ANAND 09/14/2019 [facility] GLIMEPIRIDE (glimepiride), 4 MG, TABLET, ORAL, [employer] 100 ea. BOTTLE Active [id number] 06/13/2019 SELF,[place] 06/13/2019 [facility] GLIMEPIRIDE (glimepiride), 4 MG, TABLET, ORAL, [employer] 100 ea. BOTTLE Active [id number] 2019 SELF,[place] 2019 [facility] GLIMEPIRIDE (glimepiride), 4 MG, TABLET, ORAL, [employer] 100 ea. BOTTLE Active [id number] 02/21/2019 SELF,[place] 02/22/2019 [facility] GLIMEPIRIDE (glimepiride), 4 MG, TABLET, ORAL, [employer]., 100 ea. BOTTLE Active [id number] 11/22/2018 SELF,[place] 01/14/2019 [facility] INVOKANA (CANAGLIFLOZIN), 100 MG, TABLET , ORAL, ASYA PHARM., 90 ea. BOTTLE Active [id number] 04/04/2019 SELF,ANAND 04/08/2019 [facility] INVOKANA (CANAGLIFLOZIN), 100 MG, TABLET , ORAL, ASYA PHARM., 90 ea. BOTTLE Active [id number] 06/18/2019 SELF,ANAND 06/19/2019 [facility] INVOKANA (CANAGLIFLOZIN), 100 MG, TABLET , ORAL, ASYA PHARM., 90 ea. BOTTLE Active [id number] 09/16/2019 SELF,[place] 09/16/2019 [facility] JARDIANCE (EMPAGLIFLOZIN), 25 MG, TABLET , ORAL, BOEHRINGER ING., 90 ea. BOTTLE Active [id number] 2019 SELF,[place] 2019 [facility] JARDIANCE (EMPAGLIFLOZIN), 25 MG, TABLET , ORAL, BOEHRINGER ING., 90 ea. BOTTLE Active [id number] 02/21/2019 SELF,[place] 02/22/2019 [facility] JARDIANCE (EMPAGLIFLOZIN), 25 MG, TABLET , ORAL, BOEHRINGER ING., 90 ea. BOTTLE Active [id number] 11/22/2018 SELF,[place] 01/14/2019 [facility] METFORMIN HCL (METFORMIN HCL), 1000 MG, TABLET, ORAL, [employer] INC., 500 ea. BOTTLE Active [id number] 10/13/2019 [facility] 10/14/2019 [facility] METFORMIN HCL (METFORMIN HCL), 1000 MG, TABLET, ORAL, GSMS, INC., 500 ea. BOTTLE Active [id number] 07/15/2019 [facility] 07/15/2019 [facility] METFORMIN HCL (METFORMIN HCL), 1000 MG, TABLET, ORAL, GSMS[employer] INC., 500 ea. BOTTLE Active [id number] 04/25/2019 [facility] 04/25/2019 [facility] METFORMIN HCL (METFORMIN HCL), 1000 MG, TABLET, ORAL, [employer]MS, INC., 500 ea. BOTTLE Active [id number] 01/24/2019 [facility] 02/04/2019 [facility] PNEUMOVAX 23 (PNEUMOCOCCAL 23-CARROLL P-SAC VAC), 25MCG/0.5, SYRINGE, INJECTION, MERCK SHARP & D, 0.5 ml SYRINGE Active [id number] [facility], 02/08/2019 [facility] PREDNISONE (PREDNISONE), 20MG, TABLET, O RAL, CADISTA PHARMAC, 500 ea. BOTTLE Active [id number] 08/08/2019 [facility], 08/09/2019 [facility] SHINGRIX (varicella-zoster virus glycopr otein E,rec/AS01B adjuvant/PF), 50 MCG/0.5, KIT, INTRAMUSC, GLAXOSMITHKLINE, 1 ea. KIT Active [id number] 04/30/2019 [facility], 05/01/2019 [facility] SHINGRIX (varicella-zoster virus glycopr otein E,rec/AS01B adjuvant/PF), 50 MCG/0.5, KIT, INTRAMUSC, GLAXOSMITHKLINE, 1 ea. KIT Active [id number] 02/08/2019 [facility], 02/08/2019 [facility] TRAMADOL HCL (TRAMADOL HCL), 50MG, TABLE T, ORAL, CARACO PHARM, 1000 ea. BOTTLE Active [id number] 08/18/2018 [facility], 08/23/2018 [facility] TRIAMCINOLONE ACETONIDE (triamcinolone a cetonide), 0.1 %, OINT. (G), TOPICAL, [employer] INC./, 454 g JAR Active [id number] 08/08/2019 SELF,[place] 08/09/2019 [facility] TRIAMCINOLONE ACETONIDE (TRIAMCINOLONE A CETONIDE), 0.1%, OINT.(GM), TOPICAL, PERR[employer]O CO., 454 g JAR Active [id number] 08/09/2019 SELF, 08/09/2019 [facility] TRULICITY (DULAGLUTIDE), 1.5 MG/0.5, PEN INJCTR, SUB-Q, TERRA LENNIE & CO., 0.5 ml SYRINGE Active [id number] 07/25/2019 SELF,[place] 07/26/2019 [facility] Allergies, Adverse Reactions, Alerts Combined list of all allergies from all Department of Defense and Veterans Affairs facilities. It does not include entries that were removed or entered in error. Substance Category R eaction Severity Reaction type Status Date Reported Comments Source No Known Allergies Drug allergy Drug allergy active 05/11/2007 [facility], [place] Immunizations Combined list of: 1) all immunizations on record at all Veterans [facility] ies, and 2) all available immunizations on record at Department of Defense (Do D) facilities. Some immunizations on record at [facility] may not be included. Immunization Series Date Given Administered By Site Reaction Lot Number CVX Code Drug Waste And Batting Waste Chopper Status Comments Source Influenza, injectable, quadrivalent, preservative free 1 02/28/2015 IFRAH PLAZA [id number] [address] [place] [address] (SKB) completed Influenza, injectabl e, quadrivalent, preservative free DoD pneumococcal polysaccharide vaccine, 23 valent 1 02/18/2012 HADDOX, JESUSITA A [id number] Merck (MSD) completed pneumococcal polysaccharide vaccine, 23 valent DoD zoster vaccine, live 1 02/18/2012 HADDOX, JESUSITA A [id number] Merck (MSD) completed zoster vaccine, live DoD Influenza, injectable, Madin Derby Canin e Kidney, quadrivalent with preservative 1 02/18/2012 HADDOX, JESUSITA A [id number] [facility] Room 21 Media, [employer]. (CS) completed Influenza, injectable, Madin [place] Canin e Kidney, quadrivalent with preservative DoD influenza virus vaccine, whole virus 1 04/02/2007 THEO ADAME [id number] Other (OTH) completed influenza virus vaccine, [...] H Specimen Type: BLOOD No comment entered. [facility] [place] [facility] URINALYSIS COLOR OF URINE Yello w 03/30/2019 Specimen Type: URINE No comment entered. [facility] [place] [facility] URINALYSIS SPECIFIC GRAVITY OF URINE 1.029 03/30/2019 Specimen Type: URINE No comment entered. [facility] [place] [facility] URINALYSIS UROBILINOGEN [MASS/VOLUME ] IN URINE Negativemg/dL 0.1 - 1.0 03/30/2019 Specimen Type: URINE No comment entered. [facility] [place] [facility] URINALYSIS BILIRUBIN.TOTAL [AL ESENCE] IN URINE BY TEST STRIP Negative 1 05/31/2018 Specimen Type: URINE No comment entered. [facility] [place] [facility] URINALYSIS KETONES [MASS/VOLUME] IN URINE BY TEST STRIP 5 mg/dl 03/30/2019 Specimen T ype: URINE No comment entered. [facility] [place] [facility] URINALYSIS GLUCOSE [MASS/VOLUME] IN URINE BY TEST STRIP >=500mg/dL 03/30/2019 Specimen T ype: URINE No comment entered. [facility] URINALYSIS PROTEIN [MASS/VOLUME] IN URINE BY TEST STRIP Negativemg/dl - Trace" 03/30/2019 Specimen Type: URINE No comment entered. [facility] URINALYSIS PH OF URINE BY TEST STRIP 5.0 03/30/2019 Specimen Type: URINE No comment entered. [facility] URINALYSIS MUCUS [#/AREA] IN U RINE SEDIMENT BY MICROSCOPY LOW POWER FIELD Trace/LPF 03/30/2019 Specimen Type: URINE No comment entered. [facility] URINALYSIS APPEARANCE OF URINE Clear 03/30/2019 Specimen Type: URINE No comment entered. [facility] URINALYSIS HEMOGLOBIN [PRESENCE] IN URINE Small 03/30/2019 Specimen Type: URINE No comment entered. [facility] URINALYSIS NITRITE [PRESENCE] IN URI NE BY TEST STRIP Negative 03/30/2019 Specimen T ype: URINE No comment entered. [facility] URINALYSIS LEUKOCYTE ESTERASE [PRESENCE] IN URINE BY TEST STRIP Negative 1 05/31/2018 Specimen Type: URINE No comment entered. [facility] URINALYSIS LEUKOCYTES [#/AREA] IN URINE SEDIMENT BY MICROSCOPY HIGH POWER FIELD 0-2WBC/HPF 0 - 5 03/30/2019 Specimen Type: URINE No comment entered. [facility] URINALYSIS ERYTHROCYTES [#/VOL UME] IN URINE SEDIMENT BY MICROSCOPY HIGH POWER FIELD 0-2RBC/HPF 0 - 2 03/30/2019 Specimen Type: URINE No comment entered. [facility] URINALYSIS EPITHELIAL CELLS.SQ UAMOUS [#/AREA] IN URINE SEDIMENT BY MICROSCOPY HIGH POWER FIELD Trace/HPF 03/30/2019 Specimen Type: URINE No comment entered. [facility] HEMOGLOBIN A1C HEMOGLOBIN A1C/ HEMOGLOBIN.TOTAL IN BLOOD BY HPLC 7.6 % 4.0 - 6.0 02/25/2018 H Specimen Type: BLOOD No comment entered. [facility] QUANTIFERON GOLD-TB MYCOBACTER IUM TUBERCULOSIS TUBERCULIN STIMULATED GAMMA INTERFERON [PRESENCE] IN BLOOD NEGATIVE 02/25/2018 Specimen Type: BLOOD No comment entered. [facility] QUANTIFERON GOLD-TB MYCOBACTER IUM TUBERCULOSIS STIMULATED GAMMA INTERFERON RELEASE BY CD4+ T-CELLS [UNITS/VOLUME] IN BLOOD 0.04 IU/mL 02/25/2018 Specimen T ype: BLOOD No comment entered. [facility] [place] [facility] QUANTIFERON GOLD-TB MYCOBACTER IUM TUBERCULOSIS TUBERCULIN STIMULATED GAMMA INTERFERON/MITOGEN STIMULATED GAMMA INTERFERON [UNITS/VOLUME] IN CONTROL BLOOD 9.73 IU/mL 02/25/2018 Specimen Type: BLOOD No comment entered. [facility] [place] [facility] QUANTIFERON GOLD-TB MYCOBACTER IUM TUBERCULOSIS STIMULATED GAMMA INTERFERON RELEASE BY CD4+ T-CELLS [UNITS/VOLUME] CORRECTED FOR BACKGROUND IN BLOOD <0.00IU/ml 02/25/2018 Specimen Type: BLOOD No comment entered. [facility] [place] [facility] URINALYSIS COLOR OF URINE Yello w 02/25/2018 Specimen Type: URINE No comment entered. [facility] [place] [facility] URINALYSIS SPECIFIC GRAVITY OF URINE 1.029 02/25/2018 Specimen Type: URINE No comment entered. [facility] [place] [facility] URINALYSIS UROBILINOGEN [MASS/VOLUME ] IN URINE Negativemg/dL 0.1 - 1.0 02/25/2018 Specimen Type: URINE No comment entered. [facility] [place] [facility] URINALYSIS BILIRUBIN.TOTAL [AL ESENCE] IN URINE BY TEST STRIP Negative 1 04/27/2017 Specimen Type: URINE No comment entered. [facility] [place] [facility] URINALYSIS KETONES [MASS/VOLUME] IN URINE BY TEST STRIP Negativemg/dl 02/25/2018 Specimen Type: URINE No comment entered. [facility] [place] [facility] URINALYSIS GLUCOSE [MASS/VOLUME] IN URINE BY TEST STRIP >=500mg/dL 02/25/2018 Specimen T ype: URINE No comment entered. [facility] [place] [facility] URINALYSIS PROTEIN [MASS/VOLUME] IN URINE BY TEST STRIP Negativemg/dl - Trace" 02/25/2018 Specimen Type: URINE No comment entered. [facility] [place] [facility] URINALYSIS PH OF URINE BY TEST STRIP 5.0 02/25/2018 Specimen Type: URINE No comment entered. [facility] [place] [facility] URINALYSIS APPEARANCE OF URINE Clear 02/25/2018 Specimen Type: URINE No comment entered. [facility] [place] [facility] URINALYSIS HEMOGLOBIN [PRESENCE] IN URINE Negative 02/25/2018 Specimen Type: URINE No comment entered. [facility] [place] [facility] URINALYSIS NITRITE [PRESENCE] IN URI NE BY TEST STRIP Negative 02/25/2018 Specimen T ype: URINE No comment entered. [facility] [place] [facility] URINALYSIS LEUKOCYTE ESTERASE [PRESENCE] IN URINE BY TEST STRIP Negative 1 04/27/2017 Specimen Type: URINE No comment entered. [facility] [place] [facility] Vital Signs No Data Provided for [...] Date DC Date Status Disposition Source OUTPATIENT [id number] albina JENISE ABARCA 10/02/2006 Released w/o Limitations [place]([facility]ult[place]) OUTPATIENT [id number] New Glucometer CONCEPCION CARMONA 07/16/2010 Released w /o Limitations [place] OUTPATIENT [id number] Notes Entered by: ALLYSSA DOMÍNGUEZ 18 Feb 2012 0928 FLU, PNEUMOVAX HADXJESUSITA 02/18/2012 Released w/o Limitations [place] OUTPATIENT [id number] Notes Entered by: JESUSITA MCCONNELL 28 Feb 2015 1307 FLU JENISE ROBERSON I 02/28/2015 Released w/o Limitations [place] TO-EKG [id number] _MAPID :endReason4 03/30/2019 [facility] [facility] OFFICE/[place] [id number] ICD-10 -CM Z02.89 Encounter for other administrative examinations with Provider Comments: Administrative Exam NEC MARI GAUTHIER 03/30/2019 [facility] Outpatient Encounter [id number] ICD-10 -CM Z13.6 Encounter for screening for cardiovascular disorders with Provider Comments: Encounter for Screening for Cardiovascular Disorders ALESSANDRA MARIE-ELIZABETH 03/30/2019 [facility] Outpatient Encounter [id number] _MAPID :endReason1 06/29/2019 [facility] [facility] Procedures Combined list of general [...] 1; .5 mL; IM; Right Arm; Mfg: Printi; Lot: [id number]; VIS given (Brina: 11/17/14). DoD Immunization Administration One Vaccine Immunization Administration One Vaccine [id number] 02/28/2015 IFRAH PLAZA DoD Influenza Split Virus Vaccine 0.5mL Dosa ge Intramuscular 02/18/2012 HADDOX, JESUSITA A Influenza Spl it (Injectable); Series #: 1; .5 mL; IM; Left Arm; Mfg: [employer].; Lot: [id number]; VIS given (Brina: 10/13/11). DoD Immunization Administration Each Additional Vaccine 02/18/2012 HADDOX, JESUSITA A DoD Pneumococcal Polysaccharide Vaccine (Age 2Y+) Pneumococcal Polysaccharide Vaccine (Age 2Y+) 00228 02/18/2012 HADDOX, JESUSITA A Pneumococcal; Series #: 1; .5 mL; IM; Le ft Arm; Mfg: [employer]; Lot: [id number]; VIS given (Brina: 01/16/2009). DoD Zoster Vaccine Live Zoster Vac cine Live 23395 02/18/2012 HADDOX, JESUSITA A Zoster, Live; Series #: 1; .65 mL; SC; L eft Arm; Mfg: [employer]; Lot: [id number]; VIS given (Brina: 01/16/2009). DoD Vaccines Vaccines 32424 02/18/2012 HADDOX, JESUSITA A Influenza Split (Injectable); Series #: 1; .5 mL; IM; Left Arm; Mfg: [employer], [employer].; Lot: [id number]; VIS given (Brina: 10/13/11). [facility] Diabetes outpatient self-management yahaira farnsworth services, individual, per 30 minutes 10/08/2006 [place] [facility] Social History Combined list of available smoking, tobacco, and other social history on record at Department of Defense and/or Veterans Affairs facilities. The included entrie s comply with the patient's data sharing authorizations. Social History Type Response Date Comment Source This section is an empty social history section. [facility] Assessment and Plan No Data Provided for This Section Plan of Care No Data Provided for This Section Family History No Data Provided for This Section Advance Directives No Data Provided for This Section Functional Status No Data Provided for This Section
--- OUTSIDE RECORDS SUMMARY | 2019-10-19 09:09 | XMS REPORT | Encounter Summary ---
Author Author Department of [facility] СВЕТЛАНА moreno Organization Department of [facility] Address [address] [place] [address] Phone Unavailable Support Name Relationship Address Phone Dipak SCHNEIDER Next Of Kin [address] [place] [address] Dipak SCHNEIDER [address] [address] Insurance Providers: All historical and [...] Aguilar's Name Patient's Relationship to Policy Aguilar [facility] (WNR) PRIME Sep [birth year] 1998 WNR [id number] СВЕТЛАНА SCHNEIDER PATIENT Selected Encounter This section includes the information [facility] for [facility]. Date/Time Encounter Type Encounter Description Reason Provider Source Mar 30, 2019 09:56 AM TO-EKG EKG EAS [facility] [place] [facility] IHE Encounter Template [...] 10:29 AM TO-EKG CLINICAL,DEVIC E PROXY SERVICE [facility] [place] [facility] Surgical Notes This section includes [...] NOT REQUIRED SEE SIGNATURE IN [facility] ([facility] EKG-TO) AUTO-INSTRUMENT DIAGNOSIS Procedure: [id number] 12 Lead ECG Release Status: Released Off-Line [...] Range Comment Mar 30, 2019 10:51 AM [facility] HEMOGLOBIN A1C Specimen Type: BLOOD No comment entered. HEMOGLOBIN A1C 8.5 % H 4.0-6.0 Mar 30, 2019 10:51 AM [facility] URINALYSIS Specimen Type: URINE No comment [...] Adverse Reactions (ADR s) on record with MA for the patient. The data comes from a [facility] treatment facilities. It does not list [...] DATE/TIME PERFORMED: MAR 30, 2019@10:29:4 DOCUMENT IN [facility] SEE FULL REPORT IN [facility] SIGNATURE NOT REQUIRED SEE SIGNATURE IN [facility] ([facility] EKG-TO) AUTO-INSTRUMENT DIAGNOSIS Procedure: [id number] 12 Lead ECG Release Status: Released Off-Line Verified Date Verified: Mar 30, 2019@12:59:26 Normal sinus rhythm with sinus arrhythmia Normal ECG When compared with ECG of 25-FEB-2018 10:51, No significant change was found Confirmed by Joon Dudley ([id number]) on 03/30/2019 12:59:25 PM Administrative Closure: 03/30/2019 by: DEVICE PROXY SERVICE CLINICAL Clinical Procedures Proxy Service [facility]
--- OUTSIDE RECORDS SUMMARY | 2019-10-19 09:09 | XMS REPORT | Encounter Summary ---
Author Author Department of [facility] СВЕТЛАНА moreno Organization Department of [facility] Address [address] [place] [address] Phone Unavailable Support Name Relationship Address Phone Dipak SCHNEIDER Next Of Kin [address] [place] [address] Dipak SCHNEIDER [address] [address] Insurance Providers: All historical and [...] Aguilar's Name Patient's Relationship to Policy Aguilar [facility] (WNR) PRIME Sep [birth year] 1998 WNR [id number] СВЕТЛАНА SCHNEIDER PATIENT Selected Encounter This section includes the information on record at [place] for the Encounter. Date/Time Encounter Type Encounter Description Reason Provider Source Jun 29, 2019 07:48 AM Outpatient Encounter [facility] [place] [facility] IHE Encounter Template [...] the Encounter. The data comes from all [place] treatment facilities. Test Date/Time Test Type Test Details Facility Name Jun 30, 2019 07:00 AM Laboratory - Chemistry Order HEMOGLOBI N A1C [facility] [place] [facility] Surgical Procedures: All associated [...] patient. The data comes from a ll [place] treatment facilities. It does not list Allergies/ADRs that were removed or entered in error. Some allergies/ADRs may be reported in t Immunization section. Allergen Event Date Event Type Reaction(s) Severity Source No Allergy Assessment on File N. [place]/[facility]. [facility] Medications: [facility] dispensed (-15 months) and [...] RTC in one year. /sid/ MARI GAUTHIER LENS MOLDER Signed: 06/29/2019 07:51 MARI GAUTHIER [facility]
--- OUTSIDE RECORDS SUMMARY | 2019-10-19 09:09 | XMS REPORT | Encounter Summary ---
Author Author Department of [facility] СВЕТЛАНА moreno Organization [facility] Address [address] [place] [address] Phone Unavailable Support Name Relationship Address Phone Dipak SCHNEIDER Next Of Kin [address] [place] [address] Dipak SCHNEIDER [address] [address] Insurance Providers: All historical and [...] Aguilar's Name Patient's Relationship to Policy Aguilar [facility] (WNR) PRIME Sep 13, 1997 WNR [id number] СВЕТЛАНА SCHNEIDER PATIENT Selected Encounter This section includes the information on record at [facility] for the Encounter. Date/Time Encounter Type Encounter Description Reason Provider Source Mar 30, 2019 10:37 AM Outpatient Encounter EKG ICD-1 0-CM Z13.6 Encounter for screening for cardiovascular disorders with Provider Comments: Encounter for Screening for Cardiovascular Disorders ALESSANDRA [facility] [place] [facility] IHE Encounter Template Text not used by [facility] Assessments - Encounter Diagnoses This section includes the primary and secondary diag noses documented for the Encounter. Date/Time Primary/Secondary Diagnosis Diagnosis Name Provider Source Mar 30, 2019 10:37 AM PRIMARY Encounter for scre ening for cardiovascular disorders TRACEY [facility] [facility] Plan of Treatment: Future Appointments (+ 6 months) and Future Tests (+/- 45 day s) No Data Provided for This Section Surgical Procedures: All associated to the encounter No Data Provided for This Section Lab Results: +/- 30 days of the encounter This section includes the Chemistry and Hematology Lab R esults on record with [place] for the patient. Radiology Reports and Pathology [...] H 4.0-6.0 Mar 30, 2019 10:51 AM [facility] [place] [facility] URINALYSIS Specimen Type: URINE No [...] Adverse Reactions (ADR s) on record with [place] for the patient. The data comes from a [facility] treatment facilities. It does not list Allergies/ADRs that were removed or entered in error. Some allergies/ADRs may be reported in t he Immunization section. Allergen Event Date Event Type Reaction(s) Severity Source No Allergy Assessment on File [facility], SN 15 Medications: [facility] dispensed (-15 months) and Non-VA [...]
--- OUTSIDE RECORDS SUMMARY | 2019-10-19 09:09 | XMS REPORT | Encounter Summary ---
Author Author [facility] СВЕТЛАНА moreno Organization [facility] Address [address] [place] [address] Phone Unavailable Support Name Relationship Address Phone Dipak SCHNEIDER Next Of Kin [address] [place] [address] Dipak SCHNEIDER [address] [address] Insurance Providers: All historical and [...] Aguilar's Name Patient's Relationship to Policy Aguilar [facility] (WNR) [facility] [place] Sep 13, 1997 WNR [id number] СВЕТЛАНА SCHNEIDER PATIENT Selected Encounter This section includes the information on record at [facility] for the Encounter. Date/Time Encounter Type Encounter Description Reason Provider Source Mar 30, 2019 10:00 AM OFFICE/OUTPATIENT VISIT EST OCCUPATIONAL H [facility] ICD-10-CM Z02.89 Encounter for other administrative examinations with Provider Comments: Administrative Exam NEC MARI GAUTHIER [facility] [place] [facility] Encounter Template Text not used by [facility] Assessments - Encounter Diagnoses This section includes the primary and secondary diag noses documented for the Encounter. Date/Time Primary/Secondary Diagnosis Diagnosis Name Provider Source Mar 31, 2019 04:46 PM PRIMARY Encounter for other admini strative examinations MARI GAUTHIER [facility] [place] [facility] Plan of Treatment: Future Appointments (+ 6 months) and Future Tests (+/- 45 day s) No Data Provided for This Section Surgical Procedures: All associated to the encounter No Data Provided for This Section Lab Results: +/- 30 days of the encounter This section includes the Chemistry and Hematology Lab R esults on record with [place] for the patient. Radiology Reports and Pathology Report s are provided separately, in subsequent sections. Lab Results This section contains the Chemistry/Hematology Results javad t were resulted 30 days before or 30 days after the date of the Encounter. Date/Time Source Result Type Result - Unit Interpretation Reference Range Comment Mar 30, 2019 10:51 AM [facility] [place] [facility] HEMOGLOBIN A1C Specimen Type: BLOOD No comment entered. HEMOGLOBIN A1C 8.5 % H 4.0-6.0 Mar 30, 2019 10:51 AM [facility] [employer] [place] [facility] URINALYSIS Specimen Type: URINE No [...] Adverse Reactions (ADR s) on record with [place] for the patient. The data comes from a [facility] treatment facilities. It does not list Allergies/ADRs that were removed or entered in error. Some allergies/ADRs may be reported in t he Immunization section. Allergen Event Date Event Type Reaction(s) Severity Source No Allergy Assessment on File [facility], SN 15 Medications: [facility] dispensed (-15 [...] 30, 2019 06:41 AM OCCUPATIONAL MEDICINE NOTE: [facility] TITLE: Allmoxy-Yamli STANDARD TITLE: OCCUPATIONAL MEDICINE NOTE DATE OF NOTE: MAR 30, 2019@06:41 ENTRY DATE: MAR 30, 2019@06:41:17 AUTHOR: MARI GAUTHIER EXP COSIGNER: URGENCY: STATUS: COMPLETED You may not VIEW this COMPLETED -Yamli. MARI GAUTHIER [facility] [place] [facility]
--- OUTSIDE RECORDS SUMMARY | 2019-10-19 09:10 | XMS REPORT | Continuity of Care Document ---
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 SWAZI 92 mL/min/1.73m2 > OR = 60 eGFR [...] Status Pt. Type Provider Facility Loc./Unit Complaint [id number] 09/19/2019 09:00:00 09/19/2019 23:59: 59 CLS Outpatient SERENE, ANAND CROWLEY RADHA LYONS [facility] [id number] 09/14/2019 07:15:00 Document Registration [id number] 06/13/2019 07:30:00 Document Registration [id number] 2019 07:45:00 Document Registration [id number] 10/14/2019 09:03:00 020 09:45:00 DIS Emergency HAVEN BUENO, KYLE [facility] ER FS FALL; HEAD LAC [id number] 11/20/2016 07:17:00 017 15:01:00 DIS Outpatient SELVIN BUENO, LOC Mendoza [facility] RAD SPINAL STENOSIS [id number] 12/20/2016 12:35:00 ACT Unknown [id number] 11/07/2016 13:51:48 7 23:59:59 CLS Preadmit QUYNH BOUCHER [facility] DAYDAY Surgery gr laser turp
== END 2019-10-19 09:15 | disposition home or self-care (01) ==
LOC: EDUNIT# 08:44 → ER FS 08:45
DX: S01.81XD Laceration without foreign body of other part of head, subsequent encounter (principal); X58.XXXD Exposure to other specified factors, subsequent encounter

== ENCOUNTER 2020-03-04 09:32 | Emergency (ER) | payer MEDICARE, OTHER ==
[~2020-03-04] VITALS: Ht 193 cm; Wt 105.0 kg
[~2020-03-04 09:32] MED LIST changes: +ASPI-1238 PO; -ASPI-983 PO
[2020-03-04 09:41] VITALS: BP 131/67
--- NOTE | 2020-03-04 10:44 | ED General ---
General Chief Complaint: Laceration Stated Complaint: HEAD LAC Nursing Sepsis Screen: No Definite Risk History of Present Illness Date Seen by Provider: Mar 04, 2020 Time Seen by Provider: 09:40 Initial Comments Patient is a 61-year-old male who had an accident fall from standing. He states he tripped over his feet and fell on his right wrist and hit his head on hard concrete floor. He denies loss of consciousness but reports feeling briefly dizzy for several seconds. Injury occurred 20 minutes prior to ED arrival. Of note, the patient has a 1 cm full-thickness well approximated laceration 3 cm above the left orbital rim. There is a small contusion. There is no active bleeding and tetanus is up-to-date. Patient is not on any anticoagulation or ENT platelet therapy. He denies headache and reports only soft tissue tenderness in that area. No midline neck pain. Denies any bony right wrist pain or tenderness. Denies medical symptoms prior to fall however, patient does have peripheral manisha ropathy which likely contributed to his loss of balance. No other acute symptoms or complaints. Timing/Duration: 1/2 Hour Severity: Mild Modifying Factors: improves with Other Associated Systoms: Other Allergies and Home Medications Allergies Coded Allergies: No Known Drug Allergies (Unverified , 11/20/16) Home Medications Aspirin 81 Mg Tablet.dr, 81 MG PO DAILY, (Reported) Atorvastatin Calcium 40 Mg Tablet, 40 MG PO HS, (Reported) Empagliflozin 25 Mg Tablet, 25 MG PO DAILY, (Reported) Exenatide Microspheres 2 Mg/0.65 Ml Pen.injctr, 2 MG SQ Sa, (Reported) Glimepiride 4 Mg Tablet, 4 MG PO DAILY, (Reported) Metformin HCl 1,000 Mg Tablet, 1,000 MG PO BID, (Reported) Multivitamin 1 Each Tablet, 1 TAB PO DAILY, (Reported) Tamsulosin HCl 0.4 Mg Cap.er.24h, 0.4 MG PO 1730, (Reported) Patient Home Medication List Home Medication List Reviewed: Yes Review of Systems Review of Systems Constitutional: no symptoms reported EENTM: see HPI Respiratory: no symptoms reported Cardiovascular: no symptoms reported Gastrointestinal: no symptoms reported Genitourinary: no symptoms reported Musculoskeletal: joint pain, other Skin: no symptoms reported, see HPI Psychiatric/Neurological: No Symptoms Reported Hematologic/Lymphatic: No Symptoms Reported Past Cfxsswn-Bvkkus-Dmuoqr Hx Past Med/Social Hx: Reviewed Nursing Past Med/Soc Hx Patient Social History Alcohol Use: Denies Use Recreational Drug Use: No Smoking Status: Never a Smoker 2nd Hand Smoke Exposure: No Recent Foreign Travel: No Contact w/Someone Who Travel: No Recent Infectious Disease Expo: No Recent Hopitalizations: No Physical Abuse: No Sexual Abuse: No Mistreated: No Fear: No Immunizations Up To Date Tetanus Booster (TDap): Less than 5yrs Date of Pneumonia Vaccine: Jul 12, 2014 Seasonal Allergies Seasonal Allergies: No Past Medical History Surgeries: Yes Gallbladder Respiratory: No Cardiac: Yes High Cholesterol Neurological: No Neuropathy Reproductive Disorders: No Sexually Transmitted Disease: No HIV/AIDS: No Genitourinary: Yes Prostate Problems, UTI-Chronic Gastrointestinal: No Arthritis, Chronic Back Pain Endocrine: Yes Diabetes, Non-Insulin dep HEENT: No Loss of Vision: Denies Hearing Impairment: Denies Cancer: No Psychosocial: No Integumentary: No Blood Disorders: No Physical Exam Vital Signs Vital Signs - First Documented 03/04/20 09:41 Temp 36.0 Pulse 75 Resp 16 B/P (MAP) 131/67 (88) Pulse Ox 95 O2 Delivery Room Air Capillary Refill : Less Than 3 Seconds Height, Weight, BMI Height: 6'4.00" Weight: 234lbs. 6.0oz. 106.079112ix; 28.00 BMI Method:Estimated General Appearance: No Apparent Distress, WD/WN Eyes: Bilateral Eye Normal Inspection, Bilateral Eye PERRL, Bilateral Eye EOMI HEENT: PERRL/EOMI, Other (1 cm full-thickness laceration with small contusion 3 cm above left orbital rim. Wound edges are well approximated, wound is clean no longer bleeding) Neck: Non Tender, Supple Respiratory: Lungs Clear Cardiovascular: Regular Rate, Rhythm Gastrointestinal: Soft Extremity: Other (right wrist, no bony tenderness or deformity. I soft tissue swelling with abrasion over the base of palm. ) Focused Exam Sepsis Stage: Ruled Out Procedures/Interventions Suture Size: 3-0 Other Closure Supply: Wound Adhesive Progress/Results/Core Measures Suspected Sepsis Recent Fever Within 48 Hours: No Infection Criteria Present: None New/Unexplained Altered Menta: No Sepsis Screen: No Definite Risk SIRS Temperature: Pulse: 75 Respiratory Rate: 16 Blood Pressure 131 /67 Mean: 88 Results/Orders My Orders Orders - STANLEY MAZARIEGOS DO Tramadol Tablet (Ultram Tablet) (03/04/20 10:15) Medications Given in ED Current Medications Medications Dose Ordered Sig/Quirino Route Start Time Stop Time Status Last Admin Dose Admin Tramadol HCl 100 mg ONCE ONCE PO 03/04/20 10:15 03/04/20 10:16 DC 03/04/20 10:20 100 MG Vital Signs/I&O 03/04/20 09:41 Temp 36.0 Pulse 75 Resp 16 B/P (MAP) 131/67 (88) Pulse Ox 95 O2 Delivery Room Air Capillary Refill : Less Than 3 Seconds Blood Pressure Mean: 88 Departure Communication (Admissions) Minor head injury without neurologic deficits in the ED. Patient is not on anticoagulation or antiplatelet therapy. No headache vomiting, current dizziness, her concern for more serious injury. Wound closed inclines. Typical wound care and closed head injury instructions provided. Patient verbalizes understanding. Discharge instructions prior to departure. Impression Primary Impression: Concussion Additional Impression: Forehead laceration Disposition: 01 HOME, SELF-CARE Condition: Stable Departure-Patient Inst. Patient Instructions: Laceration Repair With Glue (DC) Add. Discharge Instructions: Please go home and rest. Continue home pain medications. Followup with your PCP as needed. Return to the ED if new or worsening signs. All discharge instructions reviewed with patient and/or family. Voiced understanding. STANLEY MAZARIEGOS DO Mar 04, 2020 10:44
== END 2020-03-04 10:23 | disposition home or self-care (01) ==
LOC: EDUNIT# 09:32 → ER FS 09:33
DX: S06.0X0A Concussion without loss of consciousness, initial encounter (principal); S01.81XA Laceration without foreign body of other part of head, initial encounter; S05.42XA Penetrating wound of orbit with or without foreign body, left eye, initial encounter; S60.511A Abrasion of right hand, initial encounter; E78.00 Pure hypercholesterolemia, unspecified; E11.9 Type 2 diabetes mellitus without complications; Z79.84 Long term (current) use of oral hypoglycemic drugs; Z79.82 Long term (current) use of aspirin; W01.0XXA Fall on same level from slipping, tripping and stumbling without subsequent striking against object, initial encounter